=== PATIENT | female | born 1975 | race Caucasian/White ===

== ENCOUNTER 2016-12-07 01:56 | Emergency (ER) | payer SELFPAY ==
[~2016-12-07] VITALS: Ht 160 cm; Wt 63.0 kg
[~2016-12-07 01:56] MED LIST: FLAG500T PO
[2016-12-07 02:02] VITALS: BP 134/74; PULSE 78; RESP 16; TEMP 97.9; O2SAT 99
[2016-12-07] MEDS ORDERED: ONDANSETRON HCL 4 MG/2 ML VIAL IV ONE (05:00)
[2016-12-07] MEDS ORDERED: SODIUM CHLOR 0.9% 1000 ML INJ 1,000 ML IV ONE ×2 (05:00→06:30)
[2016-12-07 05:11] LABS: AUTOMATED NEUTROPHIL # 5.6 TH/MM3 (1.8-7.7); BASOPHIL # 0.1 TH/MM3 (0-0.2); BASOPHIL % 1.2 % (0.0-2.0); EOSINOPHIL # 0.2 TH/MM3 (0-0.4); EOSINOPHIL % 1.7 % (0.0-4.0); HEMATOCRIT 34.4 % (35.0-46.0); HEMO FLAGS DIFF FINAL; LYMPH % 29.8 % (9.0-44.0); LYMPHOCYTE # 2.7 TH/MM3 (1.0-4.8); MEAN CELL VOLUME 90.1 FL (80.0-100.0); MEAN CORPUSCULAR HEMOGLOBIN 30.9 PG (27.0-34.0); MEAN CORPUSCULAR HGB CONC 34.3 % (32.0-36.0); MONO % 5.9 % (0.0-8.0); NEUT % 61.4 % (16.0-70.0); PLATELET COUNT 243 TH/MM3 (150-450); RED BLOOD COUNT 3.82 MIL/MM3 (4.00-5.30); RED CELL DISTRIBUTION WIDTH 13.6 % (11.6-17.2); WHITE BLOOD COUNT 9.1 TH/MM3 (4.0-11.0)
[2016-12-07 05:13] VITALS: RESP 18
[2016-12-07] MEDS ORDERED: ZOFR4TAB3 SL (05:33)
--- NOTE | 2016-12-07 05:33 | PD ---
HPI Chief Complaint: GI Complaint Time Seen by Provider: 04:19 Travel History International Travel<30 days: No Contact w/Intl Traveler<30days: No Traveled to known affect area: No History of Present Illness HPI The patient is a 41 year old female who presents to the [facility] emergency department with a history of 3-4 days of vomiting and diarrhea. The patient reports that she's had vomiting twice a day and diarrhea twice per day. The patient arrives by ambulance services and is extremely sleepy. The patient is difficult to arouse to answer questions. She denies any alcohol or drug use. She is visiting from out of town. The patient reports having a generalized abdominal discomfort associated with the vomiting and diarrhea. The patient denies any recent fevers, cough, congestion, neck pain, chest pain, shortness of breath, urinary symptoms, or neurologic symptoms. LMP: Reportedly a few days ago. PFSH Past Medical History Narrative Medical The patient's past medical history is significant for none. Medical History: Denies Significant Hx Diminished Hearing: No ?: Not LMP: oct 2016 Menopausal: No : 0 Miscarriage: 1 Past Surgical History Narrative Surgical The patient's past surgical history is reportedly none. Surgical History: No Previous Surgery Social History Alcohol Use: No Tobacco Use: Yes (1PPD) Substance Use: No Allergies-Medications (Allergen,Severity, Reaction): Coded Allergies: Goose Feathers (Verified Allergy, Severe, 12/07/16) Molds and Smuts (Verified Allergy, Mild, 12/07/16) Reported Meds & Prescriptions Reported Meds & Active Scripts Active Zofran Odt (Ondansetron Odt) 4 Mg Tab 4 Mg SL Q6HR PRN Review of Systems Except as stated in HPI: all other systems reviewed are Neg General / Constitutional: No: Fever Eyes: No: Visual changes HENT: No: Headaches Cardiovascular: No: Chest Pain or Discomfort Respiratory: No: Shortness of Breath Gastrointestinal: Positive: Nausea, Vomiting, Diarrhea, Changes in Bowel Habits , No: Abdominal Pain, Indigestion, Loss of Appetite Genitourinary: No: Dysuria, Flank Pain Musculoskeletal: No: Pain Skin: No Rash Neurologic: No: Weakness Psychiatric: No: Depression Endocrine: No: Polydipsia Hematologic/Lymphatic: No: Easy Bruising Physical Exam Narrative General: The patient is a well-developed well-nourished female sleeping soundly on my arrival to the room, however difficult to arouse with voice. The patient once awakened quickly falls back to sleep. She reports that she is just sleepy because it is in the middle of the night and she is dehydrated. Head and Neck exam: Head is normocephalic atraumatic. Eyes: EOMI, pupils are equal round and reactive to light. Nose: Midline septum with pink mucous membranes Mouth: Dentition unremarkable. Moist mucus membranes. Posterior oropharynx is not erythematous. No tonsillar hypertrophy. Uvula midline. Airway patent. Neck: No palpable lymphadenopathy. No nuchal rigidity. No thyromegaly. Cardiovascular: Regular rate and rhythm without murmurs, gallops, or rubs. Lungs: Clear to auscultation bilaterally. No wheezes, rhonchi, or rales. Abdomen: Soft, with reported generalized discomfort on deep palpation. No point tenderness otherwise on palpation. No point tenderness specifically over McBurney's point. No guarding, rebound, or rigidity. Negative [place] sign. Normal bowel sounds are audible. Extremities: No clubbing, cyanosis, or edema. 2+ pulses in all 4 extremities. No calf tenderness on palpation. Back: No spinous process tenderness to palpation. No costovertebral angle tenderness to palpation. Neurologic Exam: She has difficulty staying awake to perform a formal neurologic exam, however the patient has no facial asymmetry and is moving all extremities equally with 5 over 5 strength and intact sensation over all dermatomes. Skin Exam: No rash noted. Intact skin that is warm and dry. Data Data Last Documented VS Vital Signs Date Time Temp Pulse Resp B/P Pulse Ox O2 Delivery O2 Flow Rate FiO2 12/07/16 06:20 75 16 114/75 95 Room Air 12/07/16 02:02 97.9 Orders Complete Blood Count With Diff (12/07/16 04:51) Comprehensive Metabolic Panel (12/07/16 04:51) C-Reactive Protein (Crp) (12/07/16 04:51) Lipase (12/07/16 04:51) Urinalysis - C+S If Indicated (12/07/16 04:51) [place] Sedimentation Rate (12/07/16 04:51) Iv Access Insert/Monitor (12/07/16 04:51) Ecg Monitoring (12/07/16 04:51) Oximetry (12/07/16 04:51) Ed Urine Pregnancytest Poc (12/07/16 04:51) Sodium Chlor 0.9% 1000 Ml Inj (Ns 1000 M (12/07/16 05:00) Ondansetron Inj (Zofran Inj) (12/07/16 05:00) Ct Abd/Pel W Iv Contrast(Rout) (12/07/16 05:02) Drug Screen, Random Urine (12/07/16 05:02) Alcohol (Ethanol) (12/07/16 05:02) Iohexol 350 Inj (Omnipaque 350 Inj) (12/07/16 05:59) Sodium Chlor 0.9% 1000 Ml Inj (Ns 1000 M (12/07/16 06:30) Ketorolac Inj (Toradol Inj) (12/07/16 06:30) Labs Laboratory Tests Test 12/07/16 12/07/16 04:00 06:15 White Blood Count 9.1 TH/MM3 Red Blood Count 3.82 MIL/MM3 Hemoglobin 11.8 GM/DL Hematocrit 34.4 % Mean Corpuscular Volume 90.1 FL Mean Corpuscular Hemoglobin 30.9 PG Mean Corpuscular Hemoglobin 34.3 % Concent Red Cell Distribution Width 13.6 % Platelet Count 243 TH/MM3 Mean Platelet Volume 7.4 FL Neutrophils (%) (Auto) 61.4 % Lymphocytes (%) (Auto) 29.8 % Monocytes (%) (Auto) 5.9 % Eosinophils (%) (Auto) 1.7 % Basophils (%) (Auto) 1.2 % Neutrophils # (Auto) 5.6 TH/MM3 Lymphocytes # (Auto) 2.7 TH/MM3 Monocytes # (Auto) 0.5 TH/MM3 Eosinophils # (Auto) 0.2 TH/MM3 Basophils # (Auto) 0.1 TH/MM3 CBC Comment DIFF FINAL Differential Comment Erythrocyte Sedimentation Rate 10 mm/hr Sodium Level 142 MEQ/L Potassium Level 3.3 MEQ/L Chloride Level 108 MEQ/L Carbon Dioxide Level 25.5 MEQ/L Anion Gap 9 MEQ/L Blood Urea Nitrogen 16 MG/DL Creatinine 0.63 MG/DL Estimat Glomerular Filtration 105 ML/MIN Rate Random Glucose 85 MG/DL Calcium Level 8.0 MG/DL Total Bilirubin 0.2 MG/DL Aspartate Amino Transf 12 U/L (AST/SGOT) Alanine Aminotransferase 17 U/L (ALT/SGPT) Alkaline Phosphatase 54 U/L C-Reactive Protein LESS THAN 0.29 MG/DL Total Protein 6.3 GM/DL Albumin 3.2 GM/DL Lipase 168 U/L Ethyl Alcohol Level LESS THAN 3 MG/DL Urine Color YELLOW Urine Turbidity CLEAR Urine pH 5.5 Urine Specific [place] 1.017 Urine Protein NEG mg/dL Urine Glucose (UA) NEG mg/dL Urine Ketones NEG mg/dL Urine Occult Blood MOD Urine Nitrite NEG Urine Bilirubin NEG Urine Urobilinogen LESS THAN 2.0 MG/DL Urine Leukocyte Esterase NEG Urine RBC LESS THAN 1 /hpf Urine WBC LESS THAN 1 /hpf Urine Squamous Epithelial 1 /hpf Cells Urine Mucus FEW /lpf Microscopic Urinalysis Comment CULT NOT INDICATED MDM Medical Decision Making Medical Screen Exam Complete: Yes Emergency Medical Condition: Yes Medical Record Reviewed: Yes Interpretation(s) Laboratory Tests Test 12/07/16 12/07/16 04:00 06:15 White Blood Count 9.1 TH/MM3 Red Blood Count 3.82 MIL/MM3 Hemoglobin 11.8 GM/DL Hematocrit 34.4 % Mean Corpuscular Volume 90.1 FL Mean Corpuscular Hemoglobin 30.9 PG Mean Corpuscular Hemoglobin 34.3 % Concent Red Cell Distribution Width 13.6 % Platelet Count 243 TH/MM3 Mean Platelet Volume 7.4 FL Neutrophils (%) (Auto) 61.4 % Lymphocytes (%) (Auto) 29.8 % Monocytes (%) (Auto) 5.9 % Eosinophils (%) (Auto) 1.7 % Basophils (%) (Auto) 1.2 % Neutrophils # (Auto) 5.6 TH/MM3 Lymphocytes # (Auto) 2.7 TH/MM3 Monocytes # (Auto) 0.5 TH/MM3 Eosinophils # (Auto) 0.2 TH/MM3 Basophils # (Auto) 0.1 TH/MM3 CBC Comment DIFF FINAL Differential Comment Erythrocyte Sedimentation Rate 10 mm/hr Sodium Level 142 MEQ/L Potassium Level 3.3 MEQ/L Chloride Level 108 MEQ/L Carbon Dioxide Level 25.5 MEQ/L Anion Gap 9 MEQ/L Blood Urea Nitrogen 16 MG/DL Creatinine 0.63 MG/DL Estimat Glomerular Filtration 105 ML/MIN Rate Random Glucose 85 MG/DL Calcium Level 8.0 MG/DL Total Bilirubin 0.2 MG/DL Aspartate Amino Transf 12 U/L (AST/SGOT) Alanine Aminotransferase 17 U/L (ALT/SGPT) Alkaline Phosphatase 54 U/L C-Reactive Protein LESS THAN 0.29 MG/DL Total Protein 6.3 GM/DL Albumin 3.2 GM/DL Lipase 168 U/L Ethyl Alcohol Level LESS THAN 3 MG/DL Urine Color YELLOW Urine Turbidity CLEAR Urine pH 5.5 Urine Specific [place] 1.017 Urine Protein NEG mg/dL Urine Glucose (UA) NEG mg/dL Urine Ketones NEG mg/dL Urine Occult Blood MOD Urine Nitrite NEG Urine Bilirubin NEG Urine Urobilinogen LESS THAN 2.0 MG/DL Urine Leukocyte Esterase NEG Urine RBC LESS THAN 1 /hpf Urine WBC LESS THAN 1 /hpf Urine Squamous Epithelial 1 /hpf Cells Urine Mucus FEW /lpf Microscopic Urinalysis Comment CULT NOT INDICATED Last Impressions Abdomen/Pelvis CT 12/07/16 0502 Signed Impressions: Service Date/Time: Monday, December 07, 2016 05:49 - CONCLUSION: Colitis with sparing of the sigmoid colon and rectum. No free air or or free fluid. Christian Quintanilla MD Differential Diagnosis Viral versus bacterial gastroenteritis, versus dehydration, versus electrolyte abnormality, versus colitis, versus diverticulitis, versus urinary tract infection, versus pyelonephritis, versus gastritis versus acute pancreatitis Narrative Course During the course of the patients emergency department visit, the patients history, examination, and differential diagnosis were reviewed with the patient. The patient had IV access obtained and blood work sent for analysis. The patient was placed on a air sampling and monitoring with oximetry and blood pressure monitoring. A CT scan of the abdomen and pelvis was ordered. The patient was provided normal saline a 1 L IV fluid bolus, Zofran 4 mg IV. The patients laboratory studies were reviewed and remarkable for a white count of 9.1, hemoglobin 11.8, platelets 243 with a normal differential, sedimentation rate is 10, CMP is remarkable for potassium of 3.3 which will be supplemented orally, chloride 108, calcium 8.0, AST 12. C-reactive is less than 0.29, lipase 168, urinalysis is unremarkable. Radiology studies were reviewed and remarkable for a CT scan of the abdomen and pelvis that shows colitis with sparing of the sigmoid colon and rectum. No free air or free fluid. The patient was unable to produce a stool sample while in the emergency department. The patient will be discharged home with a prescription for Zofran for nausea, Flagyl as antibiotic coverage for colitis. The patient is resting comfortably and feels better, is alert and in no distress. The patients results and examination findings were discussed with the patient. The repeat examination is unremarkable and benign. The history, exam, diagnostic testing, and current condition do not suggest any significant pathology to warrant further testing, continued ED treatment, admission, or surgical evaluation at this point. The vital signs have been stable. The patient does not have uncontrollable pain, intractable vomiting, or other significant symptoms. The patient's condition is stable and appropriate for discharge. The patient will pursue further outpatient evaluation with a primary care physician or other designated or consulting physician as indicated in the discharge instructions. The patient expressed understanding and was agreeable with this plan. Diagnosis Primary Impression: Nausea vomiting and diarrhea Additional Impression: Colitis, acute Referrals: Primary Care Physician 3 days Patient Instructions: Acute Diarrhea (ED), Acute Nausea and Vomiting (ED), Colitis (ED), General Instructions Med/Other Pt SpecificInfo: Prescription(s) given Scripts Metronidazole (Flagyl)500 Mg Rod353 Mg PO QID 7 Days Ref 0 Prov:Mikala Melendez MD 12/07/16 Ondansetron Odt (Zofran Odt)4 Mg Tab4 Mg SL Q6HR PRN (Nausea/Vomiting) #7 TAB Ref 0 Prov:Mikala Melendez MD 12/07/16 Disposition: 01 DISCHARGE HOME Condition: Stable Mikala Melendez MD Dec 07, 2016 05:33
[2016-12-07 05:34] LABS: ANION GAP 9 MEQ/L (5-15); AST (GOT) 12 U/L (15-37); BICARBONATE 25.5 MEQ/L (21.0-32.0); BLOOD UREA NITROGEN 16 MG/DL (7-18); CHLORIDE 108 MEQ/L (98-107); GLOMERULAR FILTRATION RATE 105 ML/MIN (>89); POTASSIUM 3.3 MEQ/L (3.5-5.1); SODIUM (NA) 142 MEQ/L (136-145)
[2016-12-07 05:37] LABS: ALKALINE PHOSPHATASE 54 U/L (45-117); ALT (GPT) 17 U/L (10-53); TOTAL BILIRUBIN ADULT 0.2 MG/DL (0.2-1.0)
[2016-12-07] MEDS ORDERED: IOHEXOL 350 MG/ML 10 ML VIAL (for RAD DIAG) IV ONE (05:59)
--- NOTE | 2016-12-07 06:13 | RADRPT ---
EXAM DATE/TIME: 12/07/2016 05:49 [facility] COMPARISON: No previous studies available for comparison. INDICATIONS : Abdominal pain along with nausea and vomiting. IV CONTRAST: 70 cc Omnipaque 350 (iohexol) IV ORAL CONTRAST: No oral contrast ingested. RADIATION DOSE: 6.77 CTDIvol (mGy) MEDICAL HISTORY : None SURGICAL HISTORY : None. ENCOUNTER: Initial ACUITY: 3 days PAIN SCALE: 7/10 LOCATION: abdomen TECHNIQUE: Volumetric scanning of the abdomen and pelvis was performed. Using automated exposure control and ad justment of the mA and/or kV according to patient size, radiation dose was kept as low as reasonably achievable to obtain optimal diagnostic quality images. FINDINGS: LOWER LUNGS: The visualized lower lungs are clear. LIVER: Liver homogeneous within normal limits. Gallbladder is nondistended. SPLEEN: Normal size without lesion. PANCREAS: Within normal limits. KIDNEYS: Normal in size and shape. There is no mass, stone or hydronephrosis. ADRENAL GLANDS: Within normal limits. VASCULAR: There is no aortic aneurysm. BOWEL/MESENTERY: Moderate severity cervical wall thickening and mucosal enhancement of the SMA and colon and transvers e colon. Finding is also present but less prominent in the descending colon. Appendix not identified. No free air or free fluid. ABDOMINAL WALL: Within normal limits. RETROPERITONEUM: There is no lymphadenopathy. BLADDER: No wall thickening or mass. REPRODUCTIVE: Within normal limits. INGUINAL: There is no lymphadenopathy or hernia. MUSCULOSKELETAL: Within normal limits for patient age. CONCLUSION: Colitis with sparing of the sigmoid colon and rectum. No free air or or free fluid. Christian Quintanilla MD on December 07, 2016 at 6:05 Board Certified Radiologist. This report was verified electronically.
[2016-12-07 06:20] VITALS: BP 114/75; PULSE 75; RESP 16; O2SAT 95
[2016-12-07] MEDS ORDERED: KETOROLAC TROMETHAMINE 30 MG/ML (IVP) VIAL IV PUSH ONE (06:30)
[2016-12-07 06:46] LABS: BLOOD, URINE MOD (NEG); COMMENT (UR) CULT NOT INDICATED; CULTURE IF INDICATED CULT NOT INDICATED; GLUCOSE,URINE NEG (NEG); KETONE, URINE NEG (NEG); MUCUS URINE FEW /lpf (OCC); NITRITE,URINE NEG (NEG); PH, URINE 5.5 (5.0-8.5); SQUAMOUS EPITHELIAL CELL URINE 1 /hpf (0-5); URINE COLOR YELLOW (YELLW/STRAW)
[2016-12-07 07:03] LABS: AMPHETAMINE, URINE NEG (NEG); BARBITURATES, URINE NEG (NEG); COCAINE, URINE NEG (NEG)
[2016-12-07] MEDS ORDERED: METR-1 PO (07:03)
[2016-12-07 07:40] VITALS: BP 90/50
== END 2016-12-07 07:40 | disposition home or self-care (01) ==
LOC: NEPC 01:56
DX: K52.9 Noninfective gastroenteritis and colitis, unspecified (principal); R11.2 Nausea with vomiting, unspecified; R10.84 Generalized abdominal pain; F17.200 Nicotine dependence, unspecified, uncomplicated
CPT/HCPCS: 74177; 80053; 80307; 81001; 83690; 84703; 85025; 85652; 86140; 96361; 96374; 96375; 99284; J1885; J2405; J7030; Q9967

== ENCOUNTER 2016-12-17 15:00 | Emergency (ER) | payer OTHER ==
[~2016-12-17] VITALS: Ht 167.6 cm; Wt 60.0 kg
[~2016-12-17 15:00] MED LIST changes: -FLAG500T PO; +METR-1 PO; +ZOFR4TAB3 SL
[2016-12-17 15:08] VITALS: BP 149/77; PULSE 60; RESP 16; TEMP 98; O2SAT 100
[2016-12-17 15:53] LABS: AUTOMATED NEUTROPHIL # 4.1 TH/MM3 (1.8-7.7); BASOPHIL % 0.6 % (0.0-2.0); EOSINOPHIL # 0.1 TH/MM3 (0-0.4); HEMATOCRIT 39.8 % (35.0-46.0); HEMO FLAGS DIFF FINAL; LYMPH % 31.3 % (9.0-44.0); LYMPHOCYTE # 2.1 TH/MM3 (1.0-4.8); MEAN CELL VOLUME 90.2 FL (80.0-100.0); MEAN CORPUSCULAR HEMOGLOBIN 30.7 PG (27.0-34.0); MEAN CORPUSCULAR HGB CONC 34.1 % (32.0-36.0); MONO % 7.3 % (0.0-8.0); NEUT % 59.8 % (16.0-70.0); PLATELET COUNT 253 TH/MM3 (150-450); RED BLOOD COUNT 4.41 MIL/MM3 (4.00-5.30); RED CELL DISTRIBUTION WIDTH 13.9 % (11.6-17.2); WHITE BLOOD COUNT 6.9 TH/MM3 (4.0-11.0)
[2016-12-17 15:59] LABS: BACTERIA, URINE OCC /hpf; BLOOD, URINE NEG (NEG); GLUCOSE,URINE NEG (NEG); KETONE, URINE NEG (NEG); MUCUS URINE MANY /lpf (OCC); NITRITE,URINE NEG (NEG); SQUAMOUS EPITHELIAL CELL URINE 45 /hpf (0-5); URINE COLOR YELLOW (YELLW/STRAW)
[2016-12-17 16:00] LABS: COMMENT (UR) CULTURE INDICATED; CULTURE IF INDICATED CULTURE INDICATED
[2016-12-17 16:02] LABS: AMPHETAMINE, URINE NEG (NEG); BARBITURATES, URINE NEG (NEG); COCAINE, URINE NEG (NEG)
[2016-12-17 16:19] LABS: ANION GAP 9 MEQ/L (5-15); AST (GOT) 14 U/L (15-37); BICARBONATE 23.2 MEQ/L (21.0-32.0); BLOOD UREA NITROGEN 9 MG/DL (7-18); CHLORIDE 107 MEQ/L (98-107); GLOMERULAR FILTRATION RATE 125 ML/MIN (>89); POTASSIUM 3.6 MEQ/L (3.5-5.1); SODIUM (NA) 139 MEQ/L (136-145)
[2016-12-17 16:30] LABS: ACETAMINOPHEN LESS THAN 2.0 MCG/ML (10.0-30.0); ALKALINE PHOSPHATASE 64 U/L (45-117); ALT (GPT) 19 U/L (10-53); TOTAL BILIRUBIN ADULT 0.4 MG/DL (0.2-1.0)
[2016-12-17] MEDS ORDERED: NITR100C4 PO (17:14)
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
[2016-12-17] MEDS ORDERED: NITROFURANTOIN MONOHYD MACROCR 100 MG CAP PO ONE (17:15)
[2016-12-17] MEDS ORDERED: NICOTINE 21 MG/24 HR PATCH TD ONE (19:15)
[2016-12-17] MEDS ORDERED: OLANZapine 10 MG TAB PO ONE (20:15)
[2016-12-17] MEDS ORDERED: diphenhydrAMINE HCL 50 MG CAP PO PRN (20:15)
[2016-12-17 22:19] VITALS: BP 126/57; PULSE 75; RESP 19; O2SAT 100
== END 2016-12-18 01:45 ==
LOC: NEPA 15:00 → NEPJ 12-18 01:45
DX: F17.210 Nicotine dependence, cigarettes, uncomplicated (principal); N39.0 Urinary tract infection, site not specified; B96.89 Other specified bacterial agents as the cause of diseases classified elsewhere
CPT/HCPCS: 80053; 80307; 81001; 84443; 85025; 87086; 99283; Q0163

== ENCOUNTER 2017-02-03 23:00 | Emergency (ER) | payer SELFPAY ==
[~2017-02-03] VITALS: Ht 160 cm; Wt 68.3 kg
[~2017-02-03 23:00] MED LIST changes: -METR-1 PO; +NITR100C4 PO; -ZOFR4TAB3 SL
[2017-02-03 23:19] VITALS: BP 159/101; PULSE 100; RESP 12; TEMP 97.8; O2SAT 100
[2017-02-04 00:12] VITALS: BP 159/101; PULSE 100; RESP 18; TEMP 97.8; O2SAT 100
[2017-02-04] MEDS: SODIUM CHLOR 0.9% 1000 ML INJ 1,000 ML IV ONE ×2 (01:07→02:07)
[2017-02-04] MEDS ORDERED: SODIUM CHLORIDE 0.9% FLUSH 10 ML FLUSH IVF PRN (01:15)
[2017-02-04 01:16] VITALS: RESP 18; O2SAT 100
[2017-02-04 01:31] VITALS: BP 138/79; PULSE 78; RESP 18; O2SAT 96
[2017-02-04 01:37] LABS: BLOOD, URINE TRACE (NEG); GLUCOSE,URINE NEG (NEG); KETONE, URINE NEG (NEG); NITRITE,URINE NEG (NEG); PH, URINE 5.5 (5.0-8.5)
[2017-02-04 01:43] LABS: URINE COLOR STRAW (YELLW/STRAW)
[2017-02-04 01:44] LABS: COMMENT (UR) CULT NOT INDICATED; CULTURE IF INDICATED CULT NOT INDICATED; RBC, URINE 0-3 /hpf (0-3); SQUAMOUS EPITHELIAL CELL URINE 0-5 /hpf (0-5); WBC, URINE 0-2 /hpf (0-5)
[2017-02-04 02:11] LABS: AUTOMATED NEUTROPHIL # 8.6 TH/MM3 (1.8-7.7); BASOPHIL # 0.1 TH/MM3 (0-0.2); BASOPHIL % 0.7 % (0.0-2.0); EOSINOPHIL # 0.1 TH/MM3 (0-0.4); EOSINOPHIL % 0.6 % (0.0-4.0); HEMATOCRIT 37.1 % (35.0-46.0); HEMO FLAGS DIFF FINAL; LYMPH % 17.8 % (9.0-44.0); MEAN CELL VOLUME 89.3 FL (80.0-100.0); MEAN CORPUSCULAR HEMOGLOBIN 30.8 PG (27.0-34.0); MEAN CORPUSCULAR HGB CONC 34.5 % (32.0-36.0); NEUT % 74.9 % (16.0-70.0); PLATELET COUNT 261 TH/MM3 (150-450); RED BLOOD COUNT 4.15 MIL/MM3 (4.00-5.30); RED CELL DISTRIBUTION WIDTH 12.5 % (11.6-17.2); WHITE BLOOD COUNT 11.4 TH/MM3 (4.0-11.0)
[2017-02-04 02:15] VITALS: BP 164/80; PULSE 77; RESP 18; O2SAT 99
[2017-02-04 02:34] LABS: ALKALINE PHOSPHATASE 73 U/L (45-117); ALT (GPT) 29 U/L (10-53); ANION GAP 10 MEQ/L (5-15); AST (GOT) 28 U/L (15-37); BICARBONATE 24.1 MEQ/L (21.0-32.0); BLOOD UREA NITROGEN 1 MG/DL (7-18); CHLORIDE 99 MEQ/L (98-107); GLOMERULAR FILTRATION RATE 140 ML/MIN (>89); MAGNESIUM 1.7 MG/DL (1.5-2.5); SODIUM (NA) 133 MEQ/L (136-145); TOTAL BILIRUBIN ADULT 0.4 MG/DL (0.2-1.0)
[2017-02-04 02:36] LABS: POTASSIUM 2.8 MEQ/L (3.5-5.1)
[2017-02-04] MEDS ORDERED: POTASSIUM CHLOR 10 MEQ PREMIX 100 ML IV ONE (03:00)
[2017-02-04] MEDS ORDERED: POTASSIUM CHLORIDE 20 MEQ CONTROLLED RELEASE TAB PO ONE (03:00)
[2017-02-04 03:15] VITALS: BP 114/68; PULSE 75; RESP 18; O2SAT 99
--- NOTE | 2017-02-04 03:48 | PD ---
HPI Chief Complaint: Musculoskeletal Complaint Time Seen by Provider: 01:06 Travel History International Travel<30 days: No Contact w/Intl Traveler<30days: No Traveled to known affect area: No History of Present Illness HPI 41 Year-old female presents to the emergency department stating that she doesn' t feel well that she thinks that she has anorexia and thinks that she does not have an of body fat because she hasn't eaten for 4 years. Patient is concerned about the redness of her and arms that she identifies her in an exposed distribution consistent with sunburn. Patient states that she is homeless and is tired and needs a place to sleep. Patient denies other concerns or complaints. PFSH Past Medical History Narrative Medical Anxiety; tobacco use; nursing notes reviewed Diabetes: No Diminished Hearing: No Immunizations Current: Yes Seizures: No Tetanus Vaccination: Unknown Influenza Vaccination: No ?: Not LMP: 3 WEEKS Menopausal: No : 0 Miscarriage: 1 Social History Alcohol Use: No Tobacco Use: Yes (1PPD) Substance Use: No (PT DENIES) Allergies-Medications (Allergen,Severity, Reaction): Coded Allergies: Goose Feathers (Verified Allergy, Severe, 02/04/17) Molds and Smuts (Verified Allergy, Mild, 02/04/17) Reported Meds & Prescriptions Reported Meds & Active Scripts Active Review of Systems Except as stated in HPI: all other systems reviewed are Neg General / Constitutional: No: Fever, Chills Eyes: No: Visual changes HENT: No: Headaches, Lightheadedness, Neck Pain Cardiovascular: No: Chest Pain or Discomfort, Palpitations, Diaphoresis Respiratory: No: Wheezing Gastrointestinal: No: Nausea, Vomiting, Abdominal Pain Genitourinary: No: Flank Pain Musculoskeletal: No: Myalgias, Arthralgias Skin: No Rash Neurologic: No: Weakness, Dizziness, Syncope Psychiatric: Positive: Anxiety, No: Suicidal Ideations Hematologic/Lymphatic: No: Easy Bruising Physical Exam Narrative GENERAL: Well-developed well-nourished female in no acute distress no respiratory distress SKIN: Warm and dry. Facial anterior chest bilateral upper extremities with mild erythema consistent with sun exposure areas for sunburn. No vesicles no pustules no petechia no purpura HEAD: Atraumatic. Normocephalic. EYES: Pupils equal and round. No scleral icterus. No injection or drainage. ENT: No nasal bleeding or discharge. Mucous membranes pink and moist. NECK: Trachea midline. No JVD. CARDIOVASCULAR: Regular rate and rhythm. RESPIRATORY: No accessory muscle use. Clear to auscultation. Breath sounds equal bilaterally. GASTROINTESTINAL: Abdomen soft, non-tender, nondistended. Hepatic and splenic margins not palpable. MUSCULOSKELETAL: Extremities without clubbing, cyanosis, or edema. No obvious deformities. NEUROLOGICAL: Awake and alert. No obvious cranial nerve deficits. Motor grossly within normal limits. Five out of 5 muscle strength in the arms and legs. Normal speech. PSYCHIATRIC: Appropriate mood and affect; insight and judgment normal. Data Data Last Documented VS Vital Signs Date Time Temp Pulse Resp B/P Pulse Ox O2 Delivery O2 Flow Rate FiO2 02/04/17 04:39 86 18 117/69 99 02/04/17 03:15 Room Air 02/04/17 00:12 97.8 Orders Complete Blood Count With Diff (02/04/17 01:07) Comprehensive Metabolic Panel (02/04/17 01:07) Magnesium (Mg) (02/04/17 01:07) Urinalysis - C+S If Indicated (02/04/17 01:07) Ecg Monitoring (02/04/17 01:07) Iv Access Insert/Monitor (02/04/17 01:07) Oximetry (02/04/17 01:07) Sodium Chloride 0.9% Flush (Ns Flush) (02/04/17 01:15) Sodium Chlor 0.9% 1000 Ml Inj (Ns 1000 M (02/04/17 01:07) Ed Urine Pregnancytest Poc (02/04/17 01:07) Potassium Chloride (Kcl) (02/04/17 03:00) Potassium Chlor 10 Meq Premix (Kcl 10 Me (02/04/17 03:00) Labs Laboratory Tests Test 02/04/17 02/04/17 01:25 01:55 Urine Color STRAW Urine Turbidity CLEAR Urine pH 5.5 Urine Specific [place] 1.003 Urine Protein NEG mg/dL Urine Glucose (UA) NEG mg/dL Urine Ketones NEG mg/dL Urine Occult Blood TRACE Urine Nitrite NEG Urine Bilirubin NEG Urine Leukocyte Esterase NEG Urine RBC 0-3 /hpf Urine WBC 0-2 /hpf Urine Squamous Epithelial 0-5 /hpf Cells Urine Bacteria NONE /hpf Microscopic Urinalysis Comment CULT NOT INDICATED White Blood Count 11.4 TH/MM3 Red Blood Count 4.15 MIL/MM3 Hemoglobin 12.8 GM/DL Hematocrit 37.1 % Mean Corpuscular Volume 89.3 FL Mean Corpuscular Hemoglobin 30.8 PG Mean Corpuscular Hemoglobin 34.5 % Concent Red Cell Distribution Width 12.5 % Platelet Count 261 TH/MM3 Mean Platelet Volume 7.5 FL Neutrophils (%) (Auto) 74.9 % Lymphocytes (%) (Auto) 17.8 % Monocytes (%) (Auto) 6.0 % Eosinophils (%) (Auto) 0.6 % Basophils (%) (Auto) 0.7 % Neutrophils # (Auto) 8.6 TH/MM3 Lymphocytes # (Auto) 2.0 TH/MM3 Monocytes # (Auto) 0.7 TH/MM3 Eosinophils # (Auto) 0.1 TH/MM3 Basophils # (Auto) 0.1 TH/MM3 CBC Comment DIFF FINAL Differential Comment Sodium Level 133 MEQ/L Potassium Level 2.8 MEQ/L Chloride Level 99 MEQ/L Carbon Dioxide Level 24.1 MEQ/L Anion Gap 10 MEQ/L Blood Urea Nitrogen 1 MG/DL Creatinine 0.49 MG/DL Estimat Glomerular Filtration 140 ML/MIN Rate Random Glucose 88 MG/DL Calcium Level 8.8 MG/DL Magnesium Level 1.7 MG/DL Total Bilirubin 0.4 MG/DL Aspartate Amino Transf 28 U/L (AST/SGOT) Alanine Aminotransferase 29 U/L (ALT/SGPT) Alkaline Phosphatase 73 U/L Total Protein 7.4 GM/DL Albumin 3.8 GM/DL MDM Medical Decision Making Medical Screen Exam Complete: Yes Emergency Medical Condition: Yes Medical Record Reviewed: Yes Interpretation(s) CBC & BMP Diagram 02/04/17 01:55 Vital Signs Date Time Temp Pulse Resp B/P Pulse Ox O2 Delivery O2 Flow Rate FiO2 02/04/17 04:39 86 18 117/69 99 02/04/17 03:15 75 18 114/68 99 Room Air 02/04/17 02:15 85 18 02/04/17 02:15 77 18 164/80 99 Room Air 02/04/17 01:31 78 18 138/79 96 Room Air 02/04/17 01:16 18 100 Room Air 02/04/17 00:15 100 18 02/04/17 00:12 97.8 100 18 159/101 100 02/03/17 23:19 97.8 100 12 159/101 100 Differential Diagnosis Generalized weakness, electronic disturbance, sunburn Narrative Course Specimens collected and sent for resulting patient identified to have hypokalemia patient received oral and IV potassium replacement; patient subsequently concerned about her estrogen level was encouraged to follow-up with primary care provider and given resources for outpatient follow-up such as [facility] and [facility] clinic. Patient is satisfied that her questions have been answered to her understanding and satisfaction and is desirous of being discharged. Diagnosis Primary Impression: Hypokalemia Referrals: [facility] as needed [facility] call for appointment Patient Instructions: General Instructions Additional Instructions: Increase fluid hydration Add potassium containing foods and beverages to dietary intake Follow-up with primary care provider/clinic/[facility]/[place] [facility] or [facility] Return to the emergency department as needed Disposition: 01 DISCHARGE HOME Condition: Stable Jovita Chiang MD February 04, 2017 03:48
[2017-02-04 04:39] VITALS: BP 117/69
[2017-02-05] MEDS ORDERED: POTA1TAB4 PO (02:41)
== END 2017-02-04 05:08 | disposition home or self-care (01) ==
LOC: PHED 23:00
DX: E87.6 Hypokalemia (principal); L53.9 Erythematous condition, unspecified; F17.200 Nicotine dependence, unspecified, uncomplicated; Z59.0 Homelessness; Z86.59 Personal history of other mental and behavioral disorders
CPT/HCPCS: 80053; 81001; 83735; 84703; 85025; 96361; 96365; 99284; J3480; J7030

== ENCOUNTER 2017-02-04 19:32 | Emergency (ER) | payer SELFPAY ==
[2017-02-05] MEDS ORDERED: POTA1TAB4 PO (02:41)
== END 2017-02-04 21:00 | disposition left against medical advice (07) ==
LOC: PHED 19:32
DX: R53.1 Weakness (principal); Z53.29 Procedure and treatment not carried out because of patient's decision for other reasons
CPT/HCPCS: 99281

== ENCOUNTER 2017-02-05 00:36 | Emergency (ER) | payer SELFPAY ==
[~2017-02-05] VITALS: Ht 160 cm; Wt 67.8 kg
[2017-02-05 00:53] VITALS: BP 131/84; PULSE 88; RESP 18; TEMP 98.3; O2SAT 97
[2017-02-05 01:05] VITALS: BP 131/84; PULSE 88; RESP 18; TEMP 98.3; O2SAT 97
--- NOTE | 2017-02-05 01:13 | PD ---
HPI Chief Complaint: General Weakness Time Seen by Provider: 00:55 Travel History International Travel<30 days: No Contact w/Intl Traveler<30days: No Traveled to known affect area: No History of Present Illness HPI The patient is a 41-year-old homeless female that was here last night and apparently slept the night here. She comes in tonight again stating she is "tired". She then states she hasn't had protein and 4 years and walks a lot. She would not answer me when I asked her why she did not visit the homeless half-way. She has multiple visits for panic attacks and anxiety. PFSH Past Medical History Diabetes: No Diminished Hearing: No Immunizations Current: Yes Seizures: No ?: Not LMP: 01/18/17 Menopausal: No : 0 Miscarriage: 1 Social History Alcohol Use: No Tobacco Use: Yes (1PPD) Substance Use: No (PT DENIES) Allergies-Medications (Allergen,Severity, Reaction): Coded Allergies: Goose Feathers (Verified Allergy, Severe, 02/05/17) Molds and Smuts (Verified Allergy, Mild, 02/05/17) Reported Meds & Prescriptions Reported Meds & Active Scripts Active K-Tab (Potassium Chloride) 20 Meq Tab 20 Meq PO DAILY Review of Systems Except as stated in HPI: all other systems reviewed are Neg Physical Exam Narrative GENERAL: The patient is alert, oriented 3, mildly dehydrated appearing in no apparent distress other than anxiety. Her vital signs are normal. There is no evidence of recent weight loss. SKIN: Focused skin assessment warm/dry. HEAD: Atraumatic. Normocephalic. EYES: Pupils equal and round. No scleral icterus. No injection or drainage. ENT: No nasal bleeding or discharge. Mucous membranes pink and moist. NECK: Trachea midline. No JVD. CARDIOVASCULAR: Regular rate and rhythm. No murmur appreciated. RESPIRATORY: No accessory muscle use. Clear to auscultation. Breath sounds equal bilaterally. GASTROINTESTINAL: Abdomen soft, non-tender, nondistended. Hepatic and splenic margins not palpable. No guarding or rebound. MUSCULOSKELETAL: No obvious deformities. No clubbing. No cyanosis. No edema. NEUROLOGICAL: Awake and alert. No obvious cranial nerve deficits. Motor grossly within normal limits. Normal speech and gait. PSYCHIATRIC: The patient appears anxious; insight and judgment normal. Data Data Last Documented VS Vital Signs Date Time Temp Pulse Resp B/P Pulse Ox O2 Delivery O2 Flow Rate FiO2 02/05/17 01:07 88 18 97 Room Air 02/05/17 01:05 98.3 131/84 Orders Sodium Chlor 0.9% 1000 Ml Inj (Ns 1000 M (02/05/17 01:15) Complete Blood Count With Diff (02/05/17 01:14) Comprehensive Metabolic Panel (02/05/17 01:14) Lipase (02/05/17 01:14) Urinalysis - C+S If Indicated (02/05/17 01:14) Beta Hcg (Quant/Titer) (02/05/17 01:14) Potassium Chloride (Kcl) (02/05/17 01:45) Potassium Chloride (Kcl) (02/05/17 03:00) Labs Laboratory Tests Test 02/05/17 01:30 White Blood Count 10.0 TH/MM3 Red Blood Count 4.32 MIL/MM3 Hemoglobin 12.9 GM/DL Hematocrit 39.0 % Mean Corpuscular Volume 90.3 FL Mean Corpuscular Hemoglobin 29.7 PG Mean Corpuscular Hemoglobin 32.9 % Concent Red Cell Distribution Width 12.8 % Platelet Count 277 TH/MM3 Mean Platelet Volume 7.4 FL Neutrophils (%) (Auto) 65.1 % Lymphocytes (%) (Auto) 26.1 % Monocytes (%) (Auto) 7.3 % Eosinophils (%) (Auto) 1.2 % Basophils (%) (Auto) 0.3 % Neutrophils # (Auto) 6.6 TH/MM3 Lymphocytes # (Auto) 2.6 TH/MM3 Monocytes # (Auto) 0.7 TH/MM3 Eosinophils # (Auto) 0.1 TH/MM3 Basophils # (Auto) 0.0 TH/MM3 CBC Comment DIFF FINAL Differential Comment Urine Color YELLOW Urine Turbidity CLEAR Urine pH 6.5 Urine Specific [place] 1.004 Urine Protein NEG mg/dL Urine Glucose (UA) NEG mg/dL Urine Ketones NEG mg/dL Urine Occult Blood TRACE Urine Nitrite NEG Urine Bilirubin NEG Urine Leukocyte Esterase NEG Urine RBC 0-3 /hpf Urine WBC 0-2 /hpf Urine Squamous Epithelial 0-5 /hpf Cells Microscopic Urinalysis Comment CULT NOT INDICATED Sodium Level 132 MEQ/L Potassium Level 3.2 MEQ/L Chloride Level 97 MEQ/L Carbon Dioxide Level 26.4 MEQ/L Anion Gap 9 MEQ/L Blood Urea Nitrogen 2 MG/DL Creatinine 0.49 MG/DL Estimat Glomerular Filtration 140 ML/MIN Rate Random Glucose 84 MG/DL Calcium Level 9.2 MG/DL Total Bilirubin 0.3 MG/DL Aspartate Amino Transf 28 U/L (AST/SGOT) Alanine Aminotransferase 31 U/L (ALT/SGPT) Alkaline Phosphatase 72 U/L Total Protein 7.3 GM/DL Albumin 3.7 GM/DL Lipase 121 U/L Human Chorionic Gonadotropin, LESS THAN 1 Quant MIU/ML MDM Medical Decision Making Medical Screen Exam Complete: Yes Emergency Medical Condition: Yes Medical Record Reviewed: Yes Interpretation(s) The complete metabolic profile shows a sodium of 132, potassium 3.2 but is otherwise unremarkable. The lipase is normal and the beta-hCG is less than 1. The CBC is normal. The patient is not anemic, her hemoglobin is 12.9. The urine shows trace occult blood but is otherwise normal and culture is not indicated. Differential Diagnosis Anxiety, electrolyte disorder, dehydration, anemia, malingering to obtain food and bed Narrative Course The patient has a mild hypokalemia of 3.2. Yesterday her potassium was 2.8. We gave her 20 mEq of potassium when she came in anticipating that would be low. We will give her another 20 mEq now, she is highly unlikely to purchase potassium pills. The patient should follow-up with the homeless half-way. Impression: Malingering to obtain food in bed and mild hypokalemia Diagnosis Primary Impression: Malingering Additional Impression: Hypokalemia due to inadequate potassium intake Additional Instructions: Follow-up with the homeless half-way. Try to eat as much fruit as you can to build up your potassium. Your potassium is slightly low tonight and fruits/ fruit juices help to build your potassium. Med/Other Pt SpecificInfo: Prescription(s) given Scripts Potassium Chloride ER (K-Tab)20 Meq Tab20 Meq PO DAILY #10 TAB Ref 0 Prov:Sean Marie MD 02/05/17 Disposition: DISCHARGE HOME Condition: Stable Sean Marie MD February 05, 2017 01:13 Sean Marie MD February 05, 2017 01:13
[2017-02-05] MEDS: SODIUM CHLOR 0.9% 1000 ML INJ 1,000 ML IV SCH ×2 (01:42→01:46)
[2017-02-05] MEDS ORDERED: POTASSIUM CHLORIDE 20 MEQ CONTROLLED RELEASE TAB PO ONE ×2 (01:45→03:00)
[2017-02-05 01:47] LABS: AUTOMATED NEUTROPHIL # 6.6 TH/MM3 (1.8-7.7); BASOPHIL % 0.3 % (0.0-2.0); EOSINOPHIL # 0.1 TH/MM3 (0-0.4); EOSINOPHIL % 1.2 % (0.0-4.0); HEMO FLAGS DIFF FINAL; LYMPH % 26.1 % (9.0-44.0); LYMPHOCYTE # 2.6 TH/MM3 (1.0-4.8); MEAN CELL VOLUME 90.3 FL (80.0-100.0); MEAN CORPUSCULAR HEMOGLOBIN 29.7 PG (27.0-34.0); MEAN CORPUSCULAR HGB CONC 32.9 % (32.0-36.0); MONO % 7.3 % (0.0-8.0); NEUT % 65.1 % (16.0-70.0); PLATELET COUNT 277 TH/MM3 (150-450); RED BLOOD COUNT 4.32 MIL/MM3 (4.00-5.30); RED CELL DISTRIBUTION WIDTH 12.8 % (11.6-17.2)
[2017-02-05 01:50] LABS: BLOOD, URINE TRACE (NEG); GLUCOSE,URINE NEG (NEG); KETONE, URINE NEG (NEG); NITRITE,URINE NEG (NEG); PH, URINE 6.5 (5.0-8.5)
[2017-02-05 01:52] LABS: URINE COLOR YELLOW (YELLW/STRAW)
[2017-02-05 01:54] LABS: RBC, URINE 0-3 /hpf (0-3); SQUAMOUS EPITHELIAL CELL URINE 0-5 /hpf (0-5); WBC, URINE 0-2 /hpf (0-5)
[2017-02-05 01:55] LABS: COMMENT (UR) CULT NOT INDICATED; CULTURE IF INDICATED CULT NOT INDICATED
[2017-02-05 01:57] LABS: CHLORIDE 97 MEQ/L (98-107); POTASSIUM 3.2 MEQ/L (3.5-5.1); SODIUM (NA) 132 MEQ/L (136-145)
[2017-02-05 02:01] LABS: ANION GAP 9 MEQ/L (5-15); BICARBONATE 26.4 MEQ/L (21.0-32.0); BLOOD UREA NITROGEN 2 MG/DL (7-18)
[2017-02-05 02:03] LABS: ALT (GPT) 31 U/L (10-53)
[2017-02-05 02:04] LABS: AST (GOT) 28 U/L (15-37); GLOMERULAR FILTRATION RATE 140 ML/MIN (>89)
[2017-02-05 02:05] LABS: TOTAL BILIRUBIN ADULT 0.3 MG/DL (0.2-1.0)
[2017-02-05 02:06] LABS: ALKALINE PHOSPHATASE 72 U/L (45-117)
[2017-02-05 02:09] LABS: BETA HCG QUANT LESS THAN 1 MIU/ML (0-5)
[2017-02-05] MEDS ORDERED: POTA1TAB4 PO (02:41)
== END 2017-02-05 03:09 | disposition home or self-care (01) ==
LOC: PHED 00:36
DX: E87.6 Hypokalemia (principal); R53.83 Other fatigue; F17.200 Nicotine dependence, unspecified, uncomplicated; Z76.5 Malingerer [conscious simulation]; Z59.0 Homelessness; Z86.59 Personal history of other mental and behavioral disorders
CPT/HCPCS: 80053; 81001; 83690; 84702; 85025; 96360; 99283; J7030

== ENCOUNTER 2017-02-10 07:10 | Emergency (ER) | payer SELFPAY ==
[~2017-02-10] VITALS: Ht 160 cm; Wt 60.0 kg
[~2017-02-10 07:10] MED LIST changes: -NITR100C4 PO; +POTA1TAB4 PO
[2017-02-10 07:12] VITALS: BP 132/79; PULSE 80; RESP 16; TEMP 97.8; O2SAT 90
[2017-02-10 07:33] VITALS: PULSE 78; RESP 16; O2SAT 98
--- NOTE | 2017-02-10 07:43 | PD ---
HPI Chief Complaint: General Weakness Time Seen by Provider: 07:29 Travel History International Travel<30 days: No Contact w/Intl Traveler<30days: No Traveled to known affect area: No History of Present Illness HPI The patient was seen and examined in the presence of the nurse. This is a local homeless person who comes to the ER stating that she is exhausted and homeless. She would like something to eat. She does not have any specific medical complaint. Severity is mild. She is frustrated with her homeless situation. PFSH Past Medical History Diabetes: No Diminished Hearing: No Immunizations Current: Yes Seizures: No ?: Not LMP: DECEMBER 2016 Menopausal: No : 0 Miscarriage: 1 Social History Alcohol Use: No Tobacco Use: Yes (1PPD) Substance Use: No (PT DENIES) Allergies-Medications (Allergen,Severity, Reaction): Coded Allergies: Goose Feathers (Verified Allergy, Severe, 02/05/17) Molds and Smuts (Verified Allergy, Mild, 02/05/17) Reported Meds & Prescriptions Reported Meds & Active Scripts Active K-Tab (Potassium Chloride) 20 Meq Tab 20 Meq PO DAILY Review of Systems General / Constitutional: No: Fever HENT: No: Headaches Cardiovascular: No: Chest Pain or Discomfort Physical Exam Narrative GASTROINTESTINAL: Abdomen soft, non-tender, nondistended. Positive bowel sounds. No hepato-splenomegaly, or palpable masses. No guarding. SKIN: Focused skin assessment reveals no rash or ulcers. Skin is warm and dry. Palpation shows no induration or nodules. RESPIRATORY: Respiratory effort unlabored, no retractions or use of accessory muscles. Breath sounds are clear and symmetric. Data Data Last Documented VS Vital Signs Date Time Temp Pulse Resp B/P Pulse Ox O2 Delivery O2 Flow Rate FiO2 02/10/17 07:33 78 16 98 02/10/17 07:12 97.8 132/79 [facility] Medical Decision Making Medical Screen Exam Complete: Yes Emergency Medical Condition: Yes Medical Record Reviewed: Yes Differential Diagnosis Homeless, fatigue, malingering Narrative Course I have reviewed the patient's electronic medical record. Reviewed her recent visit. She had labs done which I reviewed. She received information on [facility] and local [facility] Patient has normal vital signs Saturation 98% with clear lungs No specific complaint She does not look dehydrated No indication for medical studies Gave her a bottle of Gatorade Recommend she follow up with the homeless [facility] Diagnosis Primary Impression: Malingering Additional Instructions: The patient was advised to follow up with their physician and return if they worsen. Med/Other Pt SpecificInfo: Other Disposition: 01 DISCHARGE HOME Condition: Stable Stan Hyatt MD February 10, 2017 07:43
== END 2017-02-10 10:53 | disposition home or self-care (01) ==
LOC: NEPE 07:10
DX: Z76.5 Malingerer [conscious simulation] (principal); X58.XXXA Exposure to other specified factors, initial encounter; Z59.0 Homelessness; F17.210 Nicotine dependence, cigarettes, uncomplicated
CPT/HCPCS: 99283

== ENCOUNTER 2017-02-10 17:01 | Emergency (ER) | payer SELFPAY ==
[~2017-02-10] VITALS: Ht 160 cm; Wt 60.0 kg
[2017-02-10 17:08] VITALS: BP 135/81; PULSE 83; RESP 16; TEMP 98.4; O2SAT 97
== END 2017-02-10 18:35 | disposition left against medical advice (07) ==
LOC: NED 17:01
DX: R68.89 Other general symptoms and signs (principal)
CPT/HCPCS: 99281

== ENCOUNTER 2017-02-10 21:17 | Emergency (ER) | payer SELFPAY ==
[~2017-02-10] VITALS: Ht 160 cm; Wt 66.2 kg
[2017-02-10 21:35] VITALS: BP 132/80; PULSE 80; RESP 16; TEMP 98.6; O2SAT 98
[2017-02-10 22:37] LABS: BACTERIA, URINE RARE /hpf; BLOOD, URINE NEG (NEG); COMMENT (UR) CULT NOT INDICATED; CULTURE IF INDICATED CULT NOT INDICATED; GLUCOSE,URINE NEG (NEG); KETONE, URINE NEG (NEG); NITRITE,URINE NEG (NEG); PH, URINE 6.5 (5.0-8.5); SQUAMOUS EPITHELIAL CELL URINE 2 /hpf (0-5); URINE COLOR LIGHT-YELLOW (YELLW/STRAW)
--- NOTE | 2017-02-11 00:21 | PD ---
HPI Chief Complaint: Complaint Time Seen by Provider: 23:50 Travel History International Travel<30 days: No Contact w/Intl Traveler<30days: No Traveled to known affect area: No History of Present Illness HPI 41-year-old female arrives to the ER with a complaint to the triage nurse of urinary retention for 4 days. She was able to provide a urinalysis here. In the room the patient stated she had to leave the hospital. She asked for an HIV test as well. She also stated she had to urinate. Pt was seen in the ER earlier in the day endorsing complaint for exhaustion and homelessness along with hunger. Shortly after discharge then she returned to the ER and then left without being seen. She returned again shortly thereafter. PFSH Past Medical History Diabetes: No Diminished Hearing: No Immunizations Current: Yes Seizures: No ?: Not Menopausal: No : 0 Miscarriage: 1 Social History Alcohol Use: No Tobacco Use: Yes (1PPD) Substance Use: No (PT DENIES) Allergies-Medications (Allergen,Severity, Reaction): Coded Allergies: Goose Feathers (Verified Allergy, Severe, 02/10/17) Molds and Smuts (Verified Allergy, Mild, 02/10/17) Reported Meds & Prescriptions Reported Meds & Active Scripts Active Review of Systems ROS Limitations: Uncooperative Physical Exam Narrative GENERAL: 41 yo F, WNWND, found sleeping in room, had been to the bathroom once while here, speaking full sentences, AO x person, place and location. SKIN: Warm and dry. Erythema about the face. HEAD: Atraumatic. Normocephalic. EYES: Pupils equal and round. No scleral icterus. No injection or drainage. ENT: No nasal bleeding or discharge. Mucous membranes pink and moist. NECK: Trachea midline. No JVD. CARDIOVASCULAR: Regular rate and rhythm. RESPIRATORY: No accessory muscle use. Clear to auscultation. Breath sounds equal bilaterally. GASTROINTESTINAL: Abdomen soft, non-tender, nondistended. Hepatic and splenic margins not palpable. MUSCULOSKELETAL: Extremities without clubbing, cyanosis, or edema. No obvious deformities. NEUROLOGICAL: Awake and alert. No obvious cranial nerve deficits. Motor grossly within normal limits. Five out of 5 muscle strength in the arms and legs. Normal speech. PSYCHIATRIC: Appropriate mood and affect; insight and judgment normal. Data Data Last Documented VS Vital Signs Date Time Temp Pulse Resp B/P Pulse Ox O2 Delivery O2 Flow Rate FiO2 02/10/17 21:35 98.6 80 16 132/80 98 VS reviewed Orders Urinalysis - C+S If Indicated (02/10/17 22:14) Labs Laboratory Tests Test 02/10/17 22:19 Urine Color LIGHT-YELLOW Urine Turbidity HAZY Urine pH 6.5 Urine Specific [place] 1.002 Urine Protein NEG mg/dL Urine Glucose (UA) NEG mg/dL Urine Ketones NEG mg/dL Urine Occult Blood NEG Urine Nitrite NEG Urine Bilirubin NEG Urine Urobilinogen LESS THAN 2.0 MG/DL Urine Leukocyte Esterase NEG Urine Squamous Epithelial 2 /hpf Cells Urine Bacteria RARE /hpf Microscopic Urinalysis Comment CULT NOT INDICATED MDM Medical Decision Making Medical Screen Exam Complete: Yes Emergency Medical Condition: Yes Medical Record Reviewed: Yes Differential Diagnosis Malingering, UTI, hunger, psychiatric disease Narrative Course Pt asked to leave the ER. Pt AOx3 and is without complaint. She demonstrates capacity for independent and informed decision making. Physical restraints would have been required to keep patient here which would have been grossly inappropriate. Diagnosis Primary Impression: Left against medical advice Additional Impression: Malingering Additional Instructions: You have a choice when it comes to health care, and we are glad that you chose [facility]. Hopefully, we have met your expectations on today's visit. You are welcome to return to [facility] at any time, as we are committed to meeting the health care needs of our community. Med/Other Pt SpecificInfo: No Change to Meds Disposition: 07 AGAINST MEDICAL ADVICE Condition: Raphael Palmer MD February 11, 2017 00:21
[2017-02-12] MEDS ORDERED: POTA20TA5 PO (16:28)
== END 2017-02-11 00:35 | disposition home or self-care (01) ==
LOC: NEDAMB 21:17 → NEPE 02-11 00:35
DX: Z76.5 Malingerer [conscious simulation] (principal); F17.210 Nicotine dependence, cigarettes, uncomplicated; Z59.0 Homelessness; Z53.21 Procedure and treatment not carried out due to patient leaving prior to being seen by health care provider
CPT/HCPCS: 81001; 99283

== ENCOUNTER 2017-02-11 05:55 | Inpatient (IN) | payer SELFPAY ==
[~2017-02-11] VITALS: Ht 167.6 cm; Wt 66.3 kg
[~2017-02-11 05:55] MED LIST changes: +NITR100C4 PO
[2017-02-11 06:00] VITALS: BP 171/89; PULSE 86; RESP 16; TEMP 98.7; O2SAT 98
--- NOTE | 2017-02-11 06:38 | PD ---
HPI Chief Complaint: Psychiatric Symptoms Time Seen by Provider: 06:26 Travel History International Travel<30 days: No Contact w/Intl Traveler<30days: No Traveled to known affect area: No History of Present Illness HPI 41-year-old female patient who states she has history of HIV not on medication, schizophrenia, psychiatric history, presents to the ER today because she states that she wants to kill herself. She also states that she has been hallucinating but is not able to elaborate on what she is hallucinating about. She states that she thinks she needs help. Modifying Factors: None Associated Signs & Symptoms: Hallucinations, suicidal ideation Risk Factors: Psychiatric history PFSH Past Medical History Diabetes: No Diminished Hearing: No Immunizations Current: Yes Seizures: No ?: Unknown Menopausal: No : 0 Miscarriage: 1 Social History Alcohol Use: No Tobacco Use: Yes (1PPD) Substance Use: No (PT DENIES) Allergies-Medications (Allergen,Severity, Reaction): Coded Allergies: Goose Feathers (Verified Allergy, Severe, 02/10/17) Molds and Smuts (Verified Allergy, Mild, 02/10/17) Reported Meds & Prescriptions Reported Meds & Active Scripts Active K-Tab (Potassium Chloride) 20 Meq Tab 20 Meq PO DAILY Review of Systems Except as stated in HPI: all other systems reviewed are Neg Physical Exam Narrative GENERAL: Well-developed middle age white female patient who is currently mildly agitated, awake and oriented 3. SKIN: Focused skin assessment warm/dry. HEAD: Atraumatic. Normocephalic. EYES: Pupils equal and round. No scleral icterus. No injection or drainage. ENT: No nasal bleeding or discharge. Mucous membranes pink and moist. NECK: Trachea midline. No JVD. CARDIOVASCULAR: Regular rate and rhythm. No murmur appreciated. RESPIRATORY: No accessory muscle use. Clear to auscultation. Breath sounds equal bilaterally. GASTROINTESTINAL: Abdomen soft, non-tender, nondistended. Hepatic and splenic margins not palpable. MUSCULOSKELETAL: No obvious deformities. No clubbing. No cyanosis. No edema. NEUROLOGICAL: Awake and alert. No obvious cranial nerve deficits. Motor grossly within normal limits. Normal speech. PSYCHIATRIC: Agitated mood and affect; insight and judgment normal. Data Data Last Documented VS Vital Signs Date Time Temp Pulse Resp B/P Pulse Ox O2 Delivery O2 Flow Rate FiO2 02/11/17 06:00 98.7 86 16 171/89 98 Orders Complete Blood Count With Diff (02/11/17 06:26) Comprehensive Metabolic Panel (02/11/17 06:26) Psych Screen (02/11/17 06:26) Drug Screen, Random Urine (02/11/17 06:26) Alcohol (Ethanol) (02/11/17 06:26) MDM Medical Decision Making Medical Screen Exam Complete: Yes Emergency Medical Condition: Yes Medical Record Reviewed: Yes Differential Diagnosis Suicidal ideation, agitation, hallucinationpsychosis versus malingering Narrative Course Initial workup was entered with the patient for further psychiatric evaluation. Physician Communication Physician Communication Case is signed out to Dr. Gao at 7 AM pending workup for medical clearance. Diagnosis Primary Impression: Medical clearance for psychiatric admission Condition: Stable Harsh Esteves MD February 11, 2017 06:38
[2017-02-11 07:16] LABS: BASOPHIL % 0.3 % (0.0-2.0); EOSINOPHIL % 0.3 % (0.0-4.0); HEMO FLAGS DIFF FINAL; LYMPH % 9.3 % (9.0-44.0); LYMPHOCYTE # 1.2 TH/MM3 (1.0-4.8); MEAN CELL VOLUME 86.8 FL (80.0-100.0); MEAN CORPUSCULAR HGB CONC 34.6 % (32.0-36.0); MONO % 6.4 % (0.0-8.0); NEUT % 83.7 % (16.0-70.0); PLATELET COUNT 247 TH/MM3 (150-450); RED BLOOD COUNT 4.26 MIL/MM3 (4.00-5.30); RED CELL DISTRIBUTION WIDTH 13.4 % (11.6-17.2); WHITE BLOOD COUNT 13.1 TH/MM3 (4.0-11.0)
[2017-02-11 07:41] LABS: ALKALINE PHOSPHATASE 85 U/L (45-117); ALT (GPT) 83 U/L (10-53); ANION GAP 14 MEQ/L (5-15); AST (GOT) 143 U/L (15-37); BICARBONATE 22.3 MEQ/L (21.0-32.0); BLOOD UREA NITROGEN 2 MG/DL (7-18); CHLORIDE 84 MEQ/L (98-107); GLOMERULAR FILTRATION RATE 115 ML/MIN (>89); TOTAL BILIRUBIN ADULT 0.5 MG/DL (0.2-1.0)
--- NOTE | 2017-02-11 07:52 | PD ---
Data Data Last Documented VS Vital Signs Date Time Temp Pulse Resp B/P Pulse Ox O2 Delivery O2 Flow Rate FiO2 02/11/17 06:00 98.7 86 16 171/89 98 Orders Complete Blood Count With Diff (02/11/17 06:26) Comprehensive Metabolic Panel (02/11/17 06:26) Psych Screen (02/11/17 06:26) Drug Screen, Random Urine (02/11/17 06:26) Alcohol (Ethanol) (02/11/17 06:26) Sodium, Random Urine (02/11/17 08:16) Osmolality, Urine (02/11/17 08:16) Osmolality,Serum (02/11/17 08:16) Potassium Chloride (Kcl) (02/11/17 09:15) Labs Laboratory Tests Test 02/11/17 02/11/17 07:10 08:26 White Blood Count 13.1 TH/MM3 Red Blood Count 4.26 MIL/MM3 Hemoglobin 12.8 GM/DL Hematocrit 37.0 % Mean Corpuscular Volume 86.8 FL Mean Corpuscular Hemoglobin 30.0 PG Mean Corpuscular Hemoglobin 34.6 % Concent Red Cell Distribution Width 13.4 % Platelet Count 247 TH/MM3 Mean Platelet Volume 6.9 FL Neutrophils (%) (Auto) 83.7 % Lymphocytes (%) (Auto) 9.3 % Monocytes (%) (Auto) 6.4 % Eosinophils (%) (Auto) 0.3 % Basophils (%) (Auto) 0.3 % Neutrophils # (Auto) 11.0 TH/MM3 Lymphocytes # (Auto) 1.2 TH/MM3 Monocytes # (Auto) 0.8 TH/MM3 Eosinophils # (Auto) 0.0 TH/MM3 Basophils # (Auto) 0.0 TH/MM3 CBC Comment DIFF FINAL Differential Comment Sodium Level 120 MEQ/L Potassium Level 2.1 MEQ/L Chloride Level 84 MEQ/L Carbon Dioxide Level 22.3 MEQ/L Anion Gap 14 MEQ/L Blood Urea Nitrogen 2 MG/DL Creatinine 0.58 MG/DL Estimat Glomerular Filtration 115 ML/MIN Rate Random Glucose 100 MG/DL Calcium Level 9.2 MG/DL Total Bilirubin 0.5 MG/DL Aspartate Amino Transf 143 U/L (AST/SGOT) Alanine Aminotransferase 83 U/L (ALT/SGPT) Alkaline Phosphatase 85 U/L Total Protein 7.1 GM/DL Albumin 3.6 GM/DL Ethyl Alcohol Level LESS THAN 3 MG/DL Serum Osmolality 245 MOSM/KG MDM Supervised Visit with KULIDP: No Narrative Course Patient signed out to me by previous provider. Please see associated no for further details. In short patient is a 41-year-old female with history of HIV, schizophrenia here for the seventh time recently with suicidal ideation, increasing hallucinations. Patient did not express any medical complaints. Signed out to me pending labs for medical clearance for psychiatric evaluation. CBC, CMP, urine drug screen notable for WBC 13.1, sodium 120, potassium 2.1. Replaced with 80 mEq of potassium orally. Patient does have history of hyponatremia, most recently 132. Days hyponatremia is markedly lower than it has been area patient however is neurologically intact and able ambulate without any difficulty. Neuro intact, I would not treat with hypertonic saline. Urine and serum osmolality and urine sodium was added onto labs and patient will be admitted to medicine with psychiatric consult. Critical Care Narrative Aggregate critical care time was 35 minutes. Time to perform other separately billable procedures was not included in the critical care time. My time did not include minutes spent treating any other patients simultaneously or on activities that did not directly contribute to the patient's treatment. The services I provided to this patient were to treat and/or prevent clinically significant deterioration that could result in: Cardio Pulmonary decompensation , neurologic decompensation, , disability I provided critical care services requiring my management, as noted below: Chart data review, documentation time, medication orders and management, vital sign assessments/reviewing monitor data, ordering and reviewing lab tests, ordering and interpreting/reviewing x-rays and diagnostic studies, care of the patient and discussion of the patient with the admitting physicians. Diagnosis Primary Impression: Hyponatremia Additional Impressions: Medical clearance for psychiatric admission Hypokalemia Admitting Information Admitting Physician Requests: Admit Condition: Stable Olivia Hanna MD February 11, 2017 07:52
[2017-02-11 08:11] LABS: SODIUM (NA) 120 MEQ/L (136-145)
[2017-02-11 08:12] LABS: POTASSIUM 2.1 MEQ/L (3.5-5.1)
[2017-02-11] MEDS ORDERED: POTASSIUM CHLORIDE 20 MEQ CONTROLLED RELEASE TAB PO ONE (09:15)
[2017-02-11 09:45] VITALS: BP 122/60; PULSE 80; RESP 18; O2SAT 96
[2017-02-11 09:46] LABS: AMPHETAMINE, URINE NEG (NEG); BARBITURATES, URINE NEG (NEG); COCAINE, URINE NEG (NEG)
[2017-02-11] MEDS ORDERED: ACETAMINOPHEN 325 MG TAB PO PRN (10:00)
[2017-02-11] MEDS ORDERED: SODIUM CHLORIDE 0.9% FLUSH 10 ML FLUSH IV FLUSH PRN (10:00)
[2017-02-11] MEDS: SODIUM CHLORIDE 0.9% FLUSH 10 ML FLUSH IV FLUSH SCH ×2 (10:00→20:10)
[2017-02-11] MEDS ORDERED: NALOXONE HCL 0.4 MG/ML AMP IV PRN (10:00)
--- NOTE | 2017-02-11 10:04 | HHI.HP ---
[facility] Service Family Medicine Primary Care Physician No Primary Care Physician Admission Diagnosis hyponatremia, hypokalemia, suicidal ideation Diagnoses: International Travel<30 Days: No Contact w/Intl Traveler<30days: No Known Affected Area: No History of Present Illness Germania Hauser is a pleasant 41 year old woman who states she has HIV, also with a PMH of bipolar disorder and schizophrenia who presents to the ED due to suicidal ideations and hallucinations. She is currently homeless. She states she had thoughts of wanting to hurt herself and thought about acting on these thoughts. However before acting on these thoughts she decided to call 911 and was brought to the ED via [facility]. She does not specify what thoughts she had about hurting herself. She does endorse hallucinations for about the past 4 days but does not specify whether she is having auditory or visual hallucinations. She has no other specific medical complaints. She is alert and fully oriented, however appears tired in the ED. She states she has HIV but does not know when this was diagnosed or if she has ever been tested for this. She states she has never seen a physician for this issue and also not does have a primary care physician. She currently denies headaches, visual symptoms, chest pain, SOB, abdominal pain , hematuria, blood in stools, or pain elsewhere. She was able to ambulate within her room without issues per ED physician. (Cipriano Samaniego MD R1) Review of Systems Constitutional: DENIES: Fever Eyes: COMPLAINS OF: Photosensitivity Respiratory: DENIES: Cough, Wheezing, Shortness of breath Cardiovascular: DENIES: Chest pain Gastrointestinal: COMPLAINS OF: Vomiting (Reports she vomited once after arriving here to the ED; denies blood in emesis), DENIES: Abdominal pain, Bloody stools, Constipation, Diarrhea, Nausea Genitourinary: DENIES: Hematuria, Dysuria Integumentary: COMPLAINS OF: Rash Neurologic: DENIES: Abnormal gait, Headache, Localized weakness Psychiatric: COMPLAINS OF: Mood changes, Hallucinations, Suicidal Ideation ( Cipriano Samaniego MD R1) Past Family Social History Past Medical History Pt states she has HIV Bipolar disorder Schizophrenia Past Surgical History Denies (Cipriano Samaniego MD R1) Allergies: Coded Allergies: Goose Feathers (Verified Allergy, Severe, 02/10/17) Molds and Smuts (Verified Allergy, Mild, 02/10/17) Family History Patient states her mother took lithium States her father took antidepressants Social History Homeless Admits to smoking 1 PPD for about the past 10 years Denies etoh intake Denies illicit drug use (Cipriano Samaniego MD R1) Physical Exam Vital Signs Vital Signs Date Time Temp Pulse Resp B/P Pulse Ox O2 Delivery O2 Flow Rate FiO2 02/11/17 09:45 80 18 122/60 96 Room Air 02/11/17 06:00 98.7 86 16 171/89 98 Physical Exam GENERAL: NAD, sleeping in bed, answers questions appropriately, falls back asleep easily NEURO: AOx3. Normal speech. sugar grinder grossly intact. Motor grossly intact. Gait not tested. SKIN: Warm and dry. Scattered pustules along dorsal aspect of her left foot down to lateral part of foot. No drainage. Minimal erythema surrounding lesions. HEAD: Normocephalic. Atraumatic. EYES: PERRL. EOMI. No scleral icterus. No injection or drainage. ENT: No nasal drainage. Moist mucous membranes. No oral ulcers or lesions. NECK: Supple, trachea midline. No lymphadenopathy. CARDIOVASCULAR: Regular rate and rhythm without murmurs, rubs, or gallops. Peripheral pulses 2+. Capillary refill < 2 seconds. RESPIRATORY: Breath sounds clear to auscultation and equal bilaterally, without wheezes, rales, or rhonchi. No accessory muscle use. GASTROINTESTINAL: Abdomen soft, nontender, nondistended, normal BS. No organomegaly or masses. No rebound tenderness. No guarding. MUSCULOSKELETAL: No lower extremity edema. Normal range of motion. BACK: Nontender without obvious deformity. Laboratory Laboratory Tests Test 02/11/17 02/11/17 02/11/17 07:10 08:26 09:18 White Blood Count 13.1 Red Blood Count 4.26 Hemoglobin 12.8 Hematocrit 37.0 Mean Corpuscular Volume 86.8 Mean Corpuscular Hemoglobin 30.0 Mean Corpuscular Hemoglobin 34.6 Concent Red Cell Distribution Width 13.4 Platelet Count 247 Mean Platelet Volume 6.9 Neutrophils (%) (Auto) 83.7 Lymphocytes (%) (Auto) 9.3 Monocytes (%) (Auto) 6.4 Eosinophils (%) (Auto) 0.3 Basophils (%) (Auto) 0.3 Neutrophils # (Auto) 11.0 Lymphocytes # (Auto) 1.2 Monocytes # (Auto) 0.8 Eosinophils # (Auto) 0.0 Basophils # (Auto) 0.0 CBC Comment DIFF FINAL Differential Comment Sodium Level 120 Potassium Level 2.1 Chloride Level 84 Carbon Dioxide Level 22.3 Anion Gap 14 Blood Urea Nitrogen 2 Creatinine 0.58 Estimat Glomerular Filtration 115 Rate Random Glucose 100 Calcium Level 9.2 Total Bilirubin 0.5 Aspartate Amino Transf 143 (AST/SGOT) Alanine Aminotransferase 83 (ALT/SGPT) Alkaline Phosphatase 85 Total Protein 7.1 Albumin 3.6 Ethyl Alcohol Level LESS THAN 3 Serum Osmolality 245 Urine Osmolality 55 Urine Random Sodium 10 Urine Opiates Screen NEG Urine Barbiturates Screen NEG Urine Amphetamines Screen NEG Urine Benzodiazepines Screen NEG Urine Cocaine Screen NEG Urine Cannabinoids Screen NEG (Cipriano Samaniego MD R1) Result Diagram: 02/11/17 0710 02/11/17 0710 Septic Shock Reassessment Heart: Regular rate and rhythm Lungs: Clear Skin: Warm, Dry Peripheral Pulses: Bounding Right Radial Bounding Left Radial Bounding Right Dorsalis Pedis Bounding Left Dorsalis Pedis Bounding Right Posterior Tibial Bounding Left Posterior Tibial Capillary Refill: <2 seconds (Cipriano Samaniego MD R1) Assessment and Plan Assessment and Plan Patient is a 41 year old woman who states she has HIV, also with a PMH of bipolar disorder and schizophrenia brought to the ED via [facility] after calling an ambulance herself due to suicidal ideations and hallucinations. She is found to have severe hyponatremia with a sodium of 120 as well as a potassium of 2.1. Her cause of hyponatremia is unclear at this time but may be due to psychogenic polydipsia, hypothyroidism, alcohol intoxication, vs true volume depletion. She will be admitted to our medicine team for management of her electrolyte abnormalities and psychiatry will be consulted for recommendations in management of her psychiatric disorders. Code Status Full code Discussed Condition With Dr. Deangelo Mckeon, CARLEEN (Cipriano Samaniego MD R1) Attending Attestation Patient seen and examined, discussed with resident team. I agree with assessment and management as documented and discussed with me. The patient has been seen and examined. The chart and all resident notes have been reviewed. I agree that inpatient care is appropriate and that a two midnight stay is expected for the reasons documented in the resident history and physical. I have discussed this with the resident and certify the resident s order for inpatient admission. Pt seen on the floor. She reports feeling better. She reports drinking a large amount of water, juice, and soda daily. She denies nausea, weakness, headache. She does feel a bit anxious. She states that she wants to go back home to [place], [place] and may need case management assistance to help with identification. Sodium is improving 120-->126. IVF stopped and will restart pending recheck of BMP later today. (Tala Alexander MD) Problem List: (1) Hyponatremia Status: Acute Plan: - Na 120 on admission, patient had a Na level of 132 on 02/05 - Serum osmolality of 245; urine osmolality 55 - Patient had a UA obtained 02/10 that was within normal limits - Etoh level < 3 - UDS pending - Glucose is within normal limits at 100; no component of pseudohyponatremia - Can consider obtaining a lipid panel - TSH ordered Plan - Start NS at maintenance rate 105 cc/hr - Repeat BMP for Na level at 11:30 and adjust fluid rate as indicated (2) Hypokalemia Status: Acute Plan: - 2.1 on admission; K was as low as 2.8 on 02/04 - Unclear etiology at this time, GI losses may be contributing as patient did endorse vomiting that is not infrequent - Her anion gap is 14 so do not think there is any metabolic acidosis ongoing which may be contributing to K shifts - Will check a magnesium level and replete if needed - Patient was given 80 mEq by the ED - Continue to trend with next BMP check at 11:30 today (3) Suicidal ideations Status: Acute Plan: - Patient did not specify what suicidal thoughts she had or how close she was to acting on these thoughts - Consult psychiatry, appreciate recommendations (4) HIV (human immunodeficiency virus infection) Status: Acute Plan: - Patient stated she had HIV, however could not specify when she was diagnosed or if she has ever been tested - She stated she has never seen a physician for this in the past - Patient consented to be tested for HIV - HIV antibodies ordered (5) Leukocytosis Status: Acute Plan: - WBC 13.1 on presentation - UA obtained yesterday is clean - Lungs are clear on exam - No other signs of infection based on history or exam - Continue to monitor (6) Nutrition, metabolism, and development symptoms Status: Acute Plan: Fluids: NS at 105 cc/hr Electrolytes managed as above Heart healthy diet DVT prophylaxis: Lovenox 40 mg subq q24h (Cipriano Samaniego MD R1) Physician Certification 2 Midnight Certification Type: Admission for Inpatient Services Order for Inpatient Services The services are ordered in accordance with Medicare regulations or non- Medicare payer requirements, as applicable. In the case of services not specified as inpatient-only, they are appropriately provided as inpatient services in accordance with the 2-midnight benchmark. Estimated LOS (days): 2 days is the estimated time the patient will need to remain in the hospital, assuming treatment plan goals are met and no additional complications. Post-Hospital Plan: Home (Cipriano Samaniego MD R1) Cipriano Samaniego MD R1 February 11, 2017 10:04 Tala Alexander MD February 11, 2017 20:07
[2017-02-11] MEDS ORDERED: SODIUM CHLOR 0.9% 1000 ML INJ 1,000 ML IV SCH (10:30)
--- NOTE | 2017-02-11 10:45 | PD.PN.STU ---
Subjective Remarks Ms. Hauser is a 41 year old with PMH of schizophrenia and bipolar disorder and reported HIV infection. She was brought in by ambulance this morning after having suicidal ideations with an unclear plan and visual and auditory hallucinations. She is not able to describe her plan of suicide or her hallucinations. She reports vomiting this morning but no other symptoms. She has no physician and does not take any medications. She denies any allergies to medications. She does not recall being tested for HIV but states she is infected. ROS: denies headaches, chest pain, shortness of breath, abdominal pain, diarrhea , hematuria, bloody stools reports: sensitivity to light, vomiting, rash PMH: Schizophrenia Bipolar Disorder reported HIV infection PSH: None FH: Mother took [place], Father took anti-depressants SH: Patient is homeless and from [place]. Smokes 1 PPD for 10 years Denies alcohol or drug use Objective Vitals Vital Signs Date Time Temp Pulse Resp B/P Pulse Ox O2 Delivery O2 Flow Rate FiO2 02/11/17 09:45 80 18 122/60 96 Room Air 02/11/17 06:00 98.7 86 16 171/89 98 I/O 02/10/17 02/10/17 02/10/17 02/11/17 02/11/17 02/11/17 06:59 14:59 22:59 06:59 14:59 22:59 Output Total 200 ml Balance -200 ml Output Urine Total 200 ml # Voids 1 Result Diagram: 02/11/17 0710 02/11/17 0710 Objective Remarks GENERAL: Well-nourished, well-developed patient, drowsy, in no acute distress SKIN: Warm and dry. group of small (<5mm) pustules on anterior left foot, feet are covered in dirt HEAD: Normocephalic. EYES: No scleral icterus. No injection or drainage. NECK: Supple, trachea midline. No JVD or lymphadenopathy. CARDIOVASCULAR: Regular rate and rhythm without murmurs, gallops, or rubs. RESPIRATORY: Breath sounds equal bilaterally. No accessory muscle use. No wheezes, rhonchi or rales GASTROINTESTINAL: Abdomen soft, non-tender, nondistended. EXTREMITIES: No cyanosis, or edema. NEUROLOGICAL: drowsy, awakens to voice, oriented x 3 Medications and IVs Current Medications Medications (Trade) Dose Ordered Sig/Jerry Route Start Time Stop Time Status Last Admin (NS 1000 ml Inj) 1,000 ml @ 105 mls/hr [id number] IV 02/11/17 10:30 02/11/17 10:11 (NS Flush) 2 ml UNSCH PRN IV FLUSH 02/11/17 10:00 (NS Flush) 2 ml BID IV FLUSH 02/11/17 10:00 (Tylenol) 650 mg Q4H PRN PO 02/11/17 10:00 (Zofran Inj) 4 mg Q6H PRN IVP 02/11/17 10:00 (Lovenox Inj) 40 mg Q24H SQ 02/11/17 11:00 (Narcan Inj) 0.4 mg UNSCH PRN IV 02/11/17 10:00 A/P Assessment and Plan Ms. Hauser is a 41 year old female with a PMH of schizophrenia, bipolar disorder and reported HIV infection. She is being admitted for suicidal ideation, hallucinations, and hyponatremia. Hyponatremia Na 120 on admission Will start maintenence NS at 105ml/hr Recheck BMP in 4 hours Hypokalemia K 2.1 on admission 80meq KCl given in ED will recheck BMP Suicidal Ideation- unclear plan Consult Psychiatry Salina Mckeon M3 February 11, 2017 10:45
[2017-02-11] MEDS: ENOXAPARIN SODIUM 40 MG/0.4 ML SYRINGE SQ SCH (10:49)
[2017-02-11 12:00] VITALS: BP 112/65; PULSE 63; RESP 17; TEMP 97.5; O2SAT 95
[2017-02-11 12:20] LABS: MAGNESIUM 1.9 MG/DL (1.5-2.5)
[2017-02-11 13:46] LABS: BICARBONATE 21.4 MEQ/L (21.0-32.0)
[2017-02-11 13:49] LABS: POTASSIUM 2.3 MEQ/L (3.5-5.1)
[2017-02-11] MEDS: POTASSIUM CHLORIDE 20 MEQ CONTROLLED RELEASE TAB PO ONE ×2 (14:51→17:01)
[2017-02-11] MEDS: ONDANSETRON HCL 4 MG/2 ML VIAL IVP PRN (14:58)
--- NOTE | 2017-02-11 15:50 | EKG ---
Date Performed: 02/11/2017 Time Performed: 09:33:12 PTAGE: 41 years EKG: Sinus rhythm POSSIBLE RIGHT ATRIAL ENLARGEMENT POSSIBLE LEFT ATRIAL ENLARGEMENT NONSPECIFIC T-WAVE ABNORMALITY ERICK RDERLINE ECG NO PREVIOUS TRACING DOCTOR: Ingrid Benson Interpretating Date/Time 02/11/2017 15:47:29
[2017-02-11 16:00] VITALS: BP 116/59; PULSE 68; RESP 18; TEMP 97.4; O2SAT 97
[2017-02-11] MEDS: clonazePAM 0.5 MG TAB PO PRN (17:00)
[2017-02-11] MEDS ORDERED: POTASSIUM CHLORIDE 25 MEQ EFFERVESCENT TAB PO ONE (19:00)
[2017-02-11 19:30] LABS: BICARBONATE 24.3 MEQ/L (21.0-32.0)
[2017-02-11 19:36] LABS: POTASSIUM 2.9 MEQ/L (3.5-5.1)
[2017-02-11 20:00] VITALS: BP 108/72; PULSE 65; PULSE 66; RESP 17; TEMP 97.6; O2SAT 97
[2017-02-12] VITALS: BP 100/66; PULSE 61; RESP 17; TEMP 98.8; O2SAT 97
[2017-02-12 01:35] LABS: BICARBONATE 22.5 MEQ/L (21.0-32.0)
[2017-02-12 01:41] LABS: POTASSIUM 2.9 MEQ/L (3.5-5.1)
[2017-02-12 04:00] VITALS: BP 94/53; PULSE 80; RESP 17; TEMP 96.6; O2SAT 97
[2017-02-12] MEDS: POTASSIUM CHLORIDE 10 MEQ CONTROLLED RELEASE TAB PO ONE ×2 (04:00→04:56)
[2017-02-12 07:13] LABS: AUTOMATED NEUTROPHIL # 5.8 TH/MM3 (1.8-7.7); BASOPHIL % 0.4 % (0.0-2.0); EOSINOPHIL # 0.1 TH/MM3 (0-0.4); EOSINOPHIL % 1.2 % (0.0-4.0); HEMATOCRIT 38.9 % (35.0-46.0); HEMO FLAGS DIFF FINAL; LYMPH % 17.6 % (9.0-44.0); LYMPHOCYTE # 1.4 TH/MM3 (1.0-4.8); MEAN CELL VOLUME 88.2 FL (80.0-100.0); MEAN CORPUSCULAR HEMOGLOBIN 30.9 PG (27.0-34.0); MEAN CORPUSCULAR HGB CONC 35.1 % (32.0-36.0); MONO % 7.9 % (0.0-8.0); NEUT % 72.9 % (16.0-70.0); PLATELET COUNT 283 TH/MM3 (150-450); RED BLOOD COUNT 4.41 MIL/MM3 (4.00-5.30); RED CELL DISTRIBUTION WIDTH 13.6 % (11.6-17.2)
--- NOTE | 2017-02-12 07:14 | PD.PN.STU ---
Subjective Remarks Patient seen and examined this morning. Sitter at bedside. Vital signs stable. Still reporting suicidal/homicidal ideations and hallucinations of lights. She is unclear about her thought of harming herself or others. She has possibly delusions of being knocked out and threatened to be paralyzed. She has excessive thirst and reportedly drinks a lot of cranberry juice on a regular basis. She denies any pain or problems. Wants to get up, shower and call her mother. Objective Vitals Vital Signs Date Time Temp Pulse Resp B/P Pulse Ox O2 Delivery O2 Flow Rate FiO2 02/12/17 04:00 96.6 80 17 94/53 97 02/12/17 00:00 98.8 61 17 100/66 97 02/11/17 20:00 97.6 65 17 108/72 97 02/11/17 20:00 66 02/11/17 16:00 97.4 68 18 116/59 97 02/11/17 12:00 97.5 63 17 112/65 95 02/11/17 09:45 80 18 122/60 96 Room Air I/O 02/11/17 02/11/17 02/11/17 02/12/17 02/12/17 02/12/17 07:00 15:00 23:00 07:00 15:00 23:00 Intake Total 0 ml 240 ml 480 ml Output Total 200 ml Balance -200 ml 240 ml 480 ml Intake Oral 0 ml 240 ml 480 ml IV Total 0 ml Output Urine Total 200 ml # Voids 1 1 1 # Bowel Movements 0 Result Diagram: 02/11/17 0710 02/12/17 0047 Objective Remarks GENERAL: Well-nourished, well-developed patient, in no acute distress SKIN: Warm and dry. group of small (<5mm) pustules on anterior left foot, feet are covered in dirt HEAD: Normocephalic. EYES: No scleral icterus. No injection or drainage. NECK: Supple, trachea midline. No JVD or lymphadenopathy. CARDIOVASCULAR: Regular rate and rhythm without murmurs, gallops, or rubs. RESPIRATORY: Breath sounds equal bilaterally. No accessory muscle use. No wheezes, rhonchi or rales GASTROINTESTINAL: Abdomen soft, non-tender, nondistended. EXTREMITIES: No cyanosis, or edema. NEUROLOGICAL: alert and awake. oriented x 3 Medications and IVs Current Medications Medications (Trade) Dose Ordered Sig/Jerry Route Start Time Stop Time Status Last Admin (NS Flush) 2 ml UNSCH PRN IV FLUSH 02/11/17 10:00 (NS Flush) 2 ml BID IV FLUSH 02/11/17 10:00 02/11/17 20:10 (Tylenol) 650 mg Q4H PRN PO 02/11/17 10:00 (Zofran Inj) 4 mg Q6H PRN IVP 02/11/17 10:00 02/11/17 14:58 (Lovenox Inj) 40 mg Q24H SQ 02/11/17 11:00 02/11/17 10:49 (Narcan Inj) 0.4 mg UNSCH PRN IV 02/11/17 10:00 (KlonoPIN) 0.5 mg Q6HR PRN PO 02/11/17 15:45 02/11/17 17:00 A/P Assessment and Plan Ms. Hauser is a 41 year old female with a PMH of schizophrenia, bipolar disorder and reported HIV infection. She is being admitted for suicidal ideation, hallucinations, and hyponatremia. Hyponatremia Na 120 on admission, 137 on 02/12 at 0600 Stop maintenence NS at 105ml/hr Recheck BMP Q6H Hypokalemia K 2.1 on admission 2.9 on 02/12 at 0600 80meq KCl given in ED, additional 50meq given overnight Give another 80meq KCl will recheck BMP Q6H Telemetry Suicidal Ideation- unclear plan Consult Psychiatry HIV infection -HIV antibody screen -Hepatitis antibody screen Salina Mckeon February 12, 2017 07:14
[2017-02-12 07:43] LABS: BICARBONATE 20.7 MEQ/L (21.0-32.0); MAGNESIUM 2.3 MG/DL (1.5-2.5)
[2017-02-12 07:49] LABS: POTASSIUM 2.9 MEQ/L (3.5-5.1)
[2017-02-12 07:55] VITALS: BP 111/53; PULSE 67; RESP 18; TEMP 98.5; O2SAT 96
--- NOTE | 2017-02-12 08:21 | HHI.DCPOC ---
Discharge Care Plan Diagnosis: (1) Hypokalemia (2) Suicidal ideations (3) Hyponatremia (4) Hypokalemia due to inadequate potassium intake Goals to Promote Your Health * To prevent worsening of your condition and complications * To maintain your health at the optimal level Directions to Meet Your Goals Take your medications as prescribed Follow your dietary instruction Follow activity as directed Keep your appointments as scheduled Take your immunizations and boosters as scheduled If your symptoms worsen call your PCP, if no PCP go to Urgent Care Center or Emergency Room Smoking is Dangerous to Your Health. Avoid second hand smoke Call the 24-hour hour crisis hotline for domestic abuse at Lisa Arana MD February 12, 2017 08:21
[2017-02-12 08:37] VITALS: PULSE 65
--- NOTE | 2017-02-12 08:45 | HHI.FPPN ---
Subjective Remarks Patient seen and examined this AM. No acute events overnight. Afebrile, vitals are stable. Patient has no medical complaints this AM. Eating breakfast, tolerating diet well. She expresses concerns that someone has been trying to "punch her and knock her out and paralyze her." She then asks for "nerve x-rays. " She denies pain currently. Denies fevers, CP, SOB. (Cipriano Samaniego MD R1) Objective Vitals Vital Signs Date Time Temp Pulse Resp B/P Pulse Ox O2 Delivery O2 Flow Rate FiO2 02/12/17 07:55 98.5 67 18 111/53 96 02/12/17 04:00 96.6 80 17 94/53 97 02/12/17 00:00 98.8 61 17 100/66 97 02/11/17 20:00 97.6 65 17 108/72 97 02/11/17 20:00 66 02/11/17 16:00 97.4 68 18 116/59 97 02/11/17 12:00 97.5 63 17 112/65 95 02/11/17 09:45 80 18 122/60 96 Room Air I/O 02/11/17 02/11/17 02/11/17 02/12/17 02/12/17 02/12/17 07:00 15:00 23:00 07:00 15:00 23:00 Intake Total 0 ml 240 ml 480 ml 120 ml Output Total 200 ml Balance -200 ml 240 ml 480 ml 120 ml Intake Oral 0 ml 240 ml 480 ml 120 ml IV Total 0 ml Output Urine Total 200 ml # Voids 1 1 1 # Bowel Movements 0 (Cipriano Samaniego MD R1) Result Diagram: 02/12/17 0607 02/12/17 0607 Objective Remarks GENERAL: NAD, sitting up in bed eating breakfast, answers questions appropriately NEURO: AOx3. Normal speech. bus person dishwasher grossly intact. Motor grossly intact. SKIN: Warm and dry. Scattered pustules along dorsal aspect of her left foot down to lateral part of foot. No drainage. Minimal erythema surrounding lesions. HEAD: Normocephalic. Atraumatic. EYES: EOMI. No scleral icterus. No injection or drainage. ENT: No nasal drainage. Moist mucous membranes. No oral ulcers or lesions. NECK: Supple, trachea midline. No lymphadenopathy. CARDIOVASCULAR: Regular rate and rhythm without murmurs, rubs, or gallops. Peripheral pulses 2+. RESPIRATORY: Breath sounds clear to auscultation and equal bilaterally, without wheezes, rales, or rhonchi. No accessory muscle use. GASTROINTESTINAL: Abdomen soft, nontender, nondistended, normal BS. MUSCULOSKELETAL: No lower extremity edema. Normal range of motion. BACK: Nontender without obvious deformity. (Cipriano Samaniego MD R1) A/P Assessment and Plan Patient is a 41 year old woman who states she has HIV, also with a PMH of bipolar disorder and schizophrenia brought to the ED via [facility] after calling an ambulance herself due to suicidal ideations and hallucinations. She was found to have severe hyponatremia with a sodium of 120 as well as a potassium of 2.1 that have been monitored during her hospitalization here and are now stable. 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 Psychiatry has been consulted for recommendations in management of her psychiatric disorders. Discharge Planning Medically cleared for discharge today 02/12. (Cipriano Samaniego MD R1) Attending Attestation Patient seen, examined, and discussed with resident team. I agree with assessment and management as documented and discussed with me. Medically, patient has improved, with normalization of sodium levels. Await evaluation by psychiatry. (Tala Alexander MD) Problem List: (1) Hyponatremia Status: Resolved Plan: - Na 120 on admission, patient had a Na level of 132 on 02/05 - Now within normal limits at 137 - Serum osmolality of 245; urine osmolality 55 - UA obtained 02/10 WNLs - Etoh level < 3 - UDS negative - TSH WNLs - Fluids discontinued - Tolerating diet well (2) Hypokalemia Status: Acute Plan: - 2.1 on admission; K was as low as 2.8 on 02/04 - GI losses may be contributing as patient did endorse vomiting that is not infrequent - Her anion gap is 14 so do not think there is any metabolic acidosis ongoing which may be contributing to K shifts - Mg WNLs - K has uptrended to 2.9, additional 80 mEq repletion ordered this AM (3) Suicidal ideations Status: Acute Plan: - Patient did not specify what suicidal thoughts she had or how close she was to acting on these thoughts - Consult psychiatry, appreciate recommendations (4) HIV (human immunodeficiency virus infection) Status: Acute Plan: - Patient stated she had HIV, however could not specify when she was diagnosed or if she has ever been tested - She stated she has never seen a physician for this in the past - Patient consented to be tested for HIV - HIV antibodies still pending - Hepatitis panel pending (5) Leukocytosis Status: Resolved Plan: - WBC 13.1 on presentation; now normalized - UA is clean - No signs of infection with history or exam (6) Nutrition, metabolism, and development symptoms Status: Acute Plan: Fluids: IVF discontinued. Tolerating PO. Electrolytes managed as above Heart healthy diet DVT prophylaxis: Lovenox 40 mg subq q24h (Cipriano Samaniego MD R1) Cipriano Samaniego MD R1 February 12, 2017 08:45 Tala Alexander MD February 12, 2017 20:31
[2017-02-12] MEDS: ONDANSETRON HCL 4 MG/2 ML VIAL IVP PRN (08:56)
[2017-02-12] MEDS: SODIUM CHLORIDE 0.9% FLUSH 10 ML FLUSH IV FLUSH SCH (08:57)
[2017-02-12] MEDS: clonazePAM 0.5 MG TAB PO PRN ×2 (08:57→15:58)
[2017-02-12] MEDS ORDERED: POTASSIUM CHLORIDE 20 MEQ CONTROLLED RELEASE TAB PO ONE (09:00)
[2017-02-12] MEDS: ENOXAPARIN SODIUM 40 MG/0.4 ML SYRINGE SQ SCH (11:41)
[2017-02-12 12:00] VITALS: BP 97/49; PULSE 68; RESP 17; TEMP 96.9; O2SAT 95
--- NOTE | 2017-02-12 15:21 | PD.CONS ---
Provisional Diagnosis Admission Date February 11, 2017 at 09:32 [place] I. Adjustment disorder with depressed mood, bipolar disorder [place] II. 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 HIV, anemia [place] IV. Homelessness, well-documented history of malingering [place] V. 55 History of Present Illness Service Psychiatry Consult Requested By Primary Care Physician No Primary Care Physician HPI The patient is a 41-year-old woman, homeless, unemployed, with reported history of bipolar disorder, schizophrenia, several psychiatric hospitalizations, however few psychiatric contacts in [place], extensive documented history of malingering in the ER, who states she has HIV brought to the ED via [facility] after calling an ambulance herself due to suicidal ideations and hallucinations. She was found to have severe hyponatremia with a sodium of 120 as well as a potassium of 2.1 that have been monitored during her hospitalization here and are now stable. 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 Her toxicology is negative. On psychiatric evaluation patient is found deeply slept. She was very difficult to arouse. Once awaken she asked for breakfast, she was very oppositional and resistant to the psychiatric evaluation. She says that she has history of anxiety and she hasn't taken her Xanax. When asked about who is prescribing her Xanax and how many milligrams is she taking, she became even more oppositional stating that she wants to commit suicide. She doesn't endorse plan. Patient decided then to stop talking with me, and stated "get out of here I don't need you". Review of Systems Constitutional: DENIES: Diaphoretic episodes, Fatigue, Fever, Weight gain, Weight loss, Chills, Dizziness, Change in appetite, Night Sweats Endocrine: DENIES: Abnorml menstrual pattern, Heat/cold intolerance, Polydipsia , Polyuria, Polyphagia Eyes: DENIES: Blurred vision, Diplopia, Eye inflammation, Eye pain, Vision loss , Photosensitivity, Double Vision Ears, nose, mouth, throat: DENIES: Tinnitus, Hearing loss, Vertigo, Nasal discharge, Oral lesions, Throat pain, Hoarseness, Ear Pain, Running Nose, Epistaxis, Sinus Pain, Toothache, Odynophagia Respiratory: DENIES: Apneas, Cough, Snoring, Wheezing, Hemoptysis, Sputum production, Shortness of breath Cardiovascular: DENIES: Chest pain, Palpitations, Syncope, Dyspnea on Exertion , PND, Lower Extremity Edema, Orthopnea, Claudication Gastrointestinal: DENIES: Abdominal pain, Black stools, Bloody stools, Constipation, Diarrhea, Nausea, Vomiting, Difficulty Swallowing, Anorexia Genitourinary: DENIES: Abnormal vaginal bleeding, Dysmenorrhea, Dyspareunia, Sexual dysfunction, Urinary frequency, Urinary incontinence, Urgency, Hematuria , Dysuria, Nocturia, Vaginal discharge Musculoskeletal: DENIES: Joint pain, Muscle aches, Stiffness, Joint Swelling, Back pain, Neck pain Integumentary: DENIES: Abnormal pigmentation, Pruritus, Rash, Nail changes, Breast masses, Breast skin changes, Nipple discharge Hematologic/lymphatic: DENIES: Bruising, Lymphadenopathy Immunologic/allergic: DENIES: Eczema, Urticaria Neurologic: DENIES: Abnormal gait, Headache, Localized weakness, Paresthesias, Seizures, Speech Problems, Tremor, Poor Balance Psychiatric: DENIES: Anxiety, Confusion, Mood changes, Depression, Hallucinations, Agitation, Suicidal Ideation, Homicidal Ideation, Delusions Past Family Social History Coded Allergies: Goose Feathers (Verified Allergy, Severe, 02/10/17) Molds and Smuts (Verified Allergy, Mild, 02/10/17) Discontinued Scripts Potassium Chloride ER (K-Tab)20 Meq Tab20 Meq PO DAILY #10 TAB Ref 0 Prov:Sean Marie MD 02/05/17 Current Medications Medications (Trade) Dose Ordered Sig/Jerry Route Start Time Stop Time Status Last Admin (NS Flush) 2 ml UNSCH PRN IV FLUSH 02/11/17 10:00 (NS Flush) 2 ml BID IV FLUSH 02/11/17 10:00 02/12/17 08:57 (Tylenol) 650 mg Q4H PRN PO 02/11/17 10:00 (Zofran Inj) 4 mg Q6H PRN IVP 02/11/17 10:00 02/12/17 08:56 (Lovenox Inj) 40 mg Q24H SQ 02/11/17 11:00 02/12/17 11:41 (Narcan Inj) 0.4 mg UNSCH PRN IV 02/11/17 10:00 (KlonoPIN) 0.5 mg Q6HR PRN PO 02/11/17 15:45 02/12/17 08:57 Physical Exam Vital Signs Vital Signs Date Time Temp Pulse Resp B/P Pulse Ox O2 Delivery O2 Flow Rate FiO2 02/12/17 12:00 96.9 68 17 97/49 95 02/11/17 09:45 Room Air I/O 02/11/17 02/11/17 02/11/17 07:59 15:59 23:59 Intake Total 0 ml 240 ml Output Total 200 ml Balance -200 ml 240 ml Mental Status Examination Appearance woman, disheveled, poor hygiene, oppositional, resistant poorly cooperative Speech: Hesitant Orientation: x3 Memory: Unremarkable Thought Process: Logical, Goal Directed Hallucination Type: None Attention and Concentration: Good Suicidal Ideation: Yes Previous Suicide Attempts: No Homicidal Ideation: No Affect: Irritable, Oppositional Mood: Angry Motor Activity: Normal gait Assessment & Plan Problem List: (1) Malingering ICD Code: Z76.5 (2) Adjustment disorder with depressed mood Assessment & Plan: On psychiatric evaluation patient is found the police sleeping, without any distress, her first question was to ask for food. Her second question was to ask for Xanax for anxiety. However patient is unable to provide a history of consistent outpatient psychiatric care or a reliable source of Xanax prescriptions in the community. Once I clarified the Xanax is not currently prescribed patient becomes oppositional and resistant and also verbally hostile. She endorses suicidal ideation, but no plan. Patient has an strong history of noncompliance with medications, and malingering. It is my opinion that patient is using suicidality in order to manipulate and get attention in the hospital. I did not think that the patient needs psychiatric admission. Due to her history of character pathology a psychiatric hospitalization would not be beneficial in this patient. Avoid benzodiazepines. ICD Code: F43.21 Assessment & Plan Estimated LOS: Suraj Philippe MD February 12, 2017 15:21
[2017-02-12 16:00] VITALS: BP 96/53; PULSE 95; RESP 20; TEMP 97.8; O2SAT 96
[2017-02-12] MEDS ORDERED: POTA20TA5 PO (16:28)
== END 2017-02-12 18:00 | disposition home or self-care (01) | DRG 641 ==
LOC: NEPC 05:55 → NEDA 09:32 → N07B 11:40
PROVIDERS: ADMIT Family Medicine; ATTEND Family Medicine
DX: E87.1 Hypo-osmolality and hyponatremia (principal); R45.851 Suicidal ideations; F31.30 Bipolar disorder, current episode depressed, mild or moderate severity, unspecified; R44.0 Auditory hallucinations; E87.6 Hypokalemia; D72.829 Elevated white blood cell count, unspecified; D64.9 Anemia, unspecified; R63.1 Polydipsia; R45.850 Homicidal ideations; F17.210 Nicotine dependence, cigarettes, uncomplicated; F43.21 Adjustment disorder with depressed mood; Z59.0 Homelessness; Z76.5 Malingerer [conscious simulation]; Z91.14 Patient's other noncompliance with medication regimen
CPT/HCPCS: 80048; 80053; 80074; 80307; 82948; 83735; 83930; 83935; 84300; 84443; 85025; 86703; 93005; J1650; J2405; J7030

== ENCOUNTER 2017-07-11 22:22 | Emergency (ER) | payer SELFPAY ==
[~2017-07-11] VITALS: Ht 160 cm; Wt 60.0 kg
[~2017-07-11 22:22] MED LIST changes: -NITR100C4 PO; -POTA1TAB4 PO; +POTA20TA5 PO
[2017-07-11 22:24] VITALS: BP 124/87; PULSE 76; RESP 16; TEMP 98.5; O2SAT 98
[2017-07-12] MEDS ORDERED: SODIUM CHLOR 0.9% 1000 ML INJ 1,000 ML IV ONE (01:00)
--- NOTE | 2017-07-12 01:06 | PD ---
HPI Chief Complaint: GI Complaint Time Seen by Provider: 00:56 Travel History International Travel<30 days: No Contact w/Intl Traveler<30days: No Traveled to known affect area: No History of Present Illness HPI 42-year-old female complains of persistent nausea vomiting and dehydration. Patient states that she has been vomiting all day today. Patient denies any headache. Patient denies any chest pain or shortness of breath. Patient denies abdominal pain. Patient denies any focal weakness or numbness of extremity. Patient was admitted to [facility] May of this year with diagnosis of hyponatremia, hypokalemia, suicide ideation. Patient also has history of bipolar disorder and schizophrenia. Electrolyte abnormality was found to be secondary to psychogenic polydipsia. [facility] Past Medical History Medical History: Denies Significant Hx Diabetes: No Diminished Hearing: No Immunizations Current: Yes Seizures: No Tetanus Vaccination: Unknown ?: Not LMP: 07/11/2017 Menopausal: No : 0 Miscarriage: 1 Past Surgical History Surgical History: No Previous Surgery Social History Alcohol Use: No Tobacco Use: Yes (1PPD) Substance Use: No (denies) Allergies-Medications (Allergen,Severity, Reaction): Coded Allergies: feathers (Unverified Allergy, Severe, 05/10/17) mold (Unverified Allergy, Mild, 05/10/17) Reported Meds & Prescriptions Reported Meds & Active Scripts Active Potassium Chloride Microencaps 20 Meq Tab 20 Meq PO Q12HR Review of Systems General / Constitutional: No: Fever Eyes: No: Visual changes HENT: No: Headaches Cardiovascular: No: Chest Pain or Discomfort Respiratory: No: Shortness of Breath Gastrointestinal: Positive: Nausea, Vomiting, No: Abdominal Pain Genitourinary: No: Dysuria Musculoskeletal: No: Pain Skin: No Rash Neurologic: No: Weakness Psychiatric: No: Depression Endocrine: No: Polydipsia Hematologic/Lymphatic: No: Easy Bruising Physical Exam Narrative GENERAL: Well-nourished, well-developed patient. SKIN: Focused skin assessment warm/dry. HEAD: Normocephalic. EYES: No scleral icterus. No injection or drainage. NECK: Supple, trachea midline. No JVD or lymphadenopathy. CARDIOVASCULAR: Regular rate and rhythm without murmurs, gallops, or rubs. RESPIRATORY: Breath sounds equal bilaterally. No accessory muscle use. GASTROINTESTINAL: Abdomen soft, nondistended. Patient has mild diffuse tenderness over the abdomen. No rebound tenderness. No mass. MUSCULOSKELETAL: No cyanosis, or edema. BACK: Nontender without obvious deformity. No CVA tenderness. Neurologic exam normal. Data Data Last Documented VS Vital Signs Date Time Temp Pulse Resp B/P (MAP) Pulse Ox O2 Delivery O2 Flow Rate FiO2 07/11/17 22:24 98.5 76 16 124/87 (99) 98 Orders Orders Complete Blood Count With Diff (07/12/17 00:58) Comprehensive Metabolic Panel (07/12/17 00:58) Lipase (07/12/17 00:58) Urinalysis - C+S If Indicated (07/12/17 00:58) Magnesium (Mg) (07/12/17 00:58) Phosphorus (Po4) (07/12/17 00:58) Chest, Single Ap (07/12/17 00:58) Iv Access Insert/Monitor (07/12/17 00:58) Ecg Monitoring (07/12/17 00:58) Oximetry (07/12/17 00:58) Drug Screen, Random Urine (07/12/17 00:58) Alcohol (Ethanol) (07/12/17 00:58) Ns (Bolus) Inj (07/12/17 01:00) MDM Medical Decision Making Medical Screen Exam Complete: Yes Emergency Medical Condition: Yes Differential Diagnosis Differential diagnosis including gastroenteritis, dehydration, electrolyte abnormality. Narrative Course 42-year-old female with history of persistent vomiting all day today and dehydration. Patient was admitted in the past for psychiatric symptoms and electrolyte abnormality. Normal saline solution 1 L IV bolus. Zofran 4 mg IV. Liang Farrell MD Jul 12, 2017 01:06
[2017-07-12 01:15] LABS: BASOPHIL # 0.1 TH/MM3 (0-0.2); BASOPHIL % 0.7 % (0.0-2.0); EOSINOPHIL # 0.2 TH/MM3 (0-0.4); EOSINOPHIL % 1.9 % (0.0-4.0); HEMATOCRIT 38.1 % (35.0-46.0); HEMO FLAGS DIFF FINAL; LYMPH % 37.3 % (9.0-44.0); LYMPHOCYTE # 3.5 TH/MM3 (1.0-4.8); MEAN CELL VOLUME 92.6 FL (80.0-100.0); MEAN CORPUSCULAR HEMOGLOBIN 31.4 PG (27.0-34.0); MEAN CORPUSCULAR HGB CONC 33.9 % (32.0-36.0); MONO % 7.2 % (0.0-8.0); NEUT % 52.9 % (16.0-70.0); PLATELET COUNT 263 TH/MM3 (150-450); RED BLOOD COUNT 4.11 MIL/MM3 (4.00-5.30); WHITE BLOOD COUNT 9.5 TH/MM3 (4.0-11.0)
[2017-07-12 01:26] LABS: ALT (GPT) 20 U/L (10-53); ANION GAP 6 MEQ/L (5-15); AST (GOT) 18 U/L (15-37); BICARBONATE 26.7 MEQ/L (21.0-32.0); BLOOD UREA NITROGEN 10 MG/DL (7-18); CHLORIDE 108 MEQ/L (98-107); GLOMERULAR FILTRATION RATE 112 ML/MIN (>89); POTASSIUM 3.5 MEQ/L (3.5-5.1); SODIUM (NA) 141 MEQ/L (136-145)
[2017-07-12 01:28] LABS: ALKALINE PHOSPHATASE 67 U/L (45-117); TOTAL BILIRUBIN ADULT 0.2 MG/DL (0.2-1.0)
[2017-07-12 01:47] LABS: ALCOHOL LESS THAN 3 MG/DL (0-5)
--- NOTE | 2017-07-12 01:53 | RADRPT ---
EXAM DATE/TIME: 07/12/2017 02:07 [place] COMPARISON: No previous studies available for comparison. INDICATIONS : Short of breath. MEDICAL HISTORY : None. SURGICAL HISTORY : None. ENCOUNTER: Initial ACUITY: 1 day PAIN SCORE: 0/10 LOCATION: Bilateral chest FINDINGS: A single view of the chest demonstrates the lungs to be symmetrically aerated without evidence of mas s, infiltrate or effusion. The cardiomediastinal contours are unremarkable. Osseous structures are intact. CONCLUSION: 1. No acute cardiopulmonary disease. Tony Tavares MD on July 12, 2017 at 1:52 Board Certified Radiologist. This report was verified electronically.
[2017-07-12 03:27] LABS: BACTERIA, URINE MOD /hpf; BLOOD, URINE LARGE (NEG); COMMENT (UR) CULTURE INDICATED; CULTURE IF INDICATED CULTURE INDICATED; GLUCOSE,URINE NEG (NEG); KETONE, URINE NEG (NEG); MUCUS URINE MOD /lpf (OCC); NITRITE,URINE NEG (NEG); SQUAMOUS EPITHELIAL CELL URINE 1 /hpf (0-5)
[2017-07-12 03:30] LABS: URINE COLOR LIGHT-RED (YELLW/STRAW)
[2017-07-12] MEDS ORDERED: cefTRIAXone INJ 1,000 MG in SODIUM CHLORIDE 0.9% INJ 100 ML IV ONE (03:45)
[2017-07-12] MEDS ORDERED: CEPH-460 PO (03:48)
--- NOTE | 2017-07-12 03:48 | PD ---
Physical Exam Date Seen by Provider: Jul 12, 2017 Time Seen by Provider: 03:44 Narrative For full history and physical examination please see previous provider's note. I assumed care of this patient at the end of my attending physician shift. Data Data Last Documented VS Vital Signs Date Time Temp Pulse Resp B/P (MAP) Pulse Ox O2 Delivery O2 Flow Rate FiO2 07/11/17 22:24 98.5 76 16 124/87 (99) 98 Orders Orders Complete Blood Count With Diff (07/12/17 00:58) Comprehensive Metabolic Panel (07/12/17 00:58) Lipase (07/12/17 00:58) Urinalysis - C+S If Indicated (07/12/17 00:58) Magnesium (Mg) (07/12/17 00:58) Phosphorus (Po4) (07/12/17 00:58) Chest, Single Ap (07/12/17 00:58) Iv Access Insert/Monitor (07/12/17 00:58) Ecg Monitoring (07/12/17 00:58) Oximetry (07/12/17 00:58) Drug Screen, Random Urine (07/12/17 00:58) Alcohol (Ethanol) (07/12/17 00:58) Sodium Chlor 0.9% 1000 Ml Inj (Ns 1000 M (07/12/17 01:00) Urine Culture (07/12/17 03:10) Ceftriaxone Inj (Rocephin Inj) (07/12/17 03:45) Ed Discharge Order (07/12/17 03:43) Labs Laboratory Tests Test 07/12/17 00:55 07/12/17 03:10 White Blood Count 9.5 TH/MM3 Red Blood Count 4.11 MIL/MM3 Hemoglobin 12.9 GM/DL Hematocrit 38.1 % Mean Corpuscular Volume 92.6 FL Mean Corpuscular Hemoglobin 31.4 PG Mean Corpuscular Hemoglobin Concent 33.9 % Red Cell Distribution Width 14.0 % Platelet Count 263 TH/MM3 Mean Platelet Volume 7.8 FL Neutrophils (%) (Auto) 52.9 % Lymphocytes (%) (Auto) 37.3 % Monocytes (%) (Auto) 7.2 % Eosinophils (%) (Auto) 1.9 % Basophils (%) (Auto) 0.7 % Neutrophils # (Auto) 5.0 TH/MM3 Lymphocytes # (Auto) 3.5 TH/MM3 Monocytes # (Auto) 0.7 TH/MM3 Eosinophils # (Auto) 0.2 TH/MM3 Basophils # (Auto) 0.1 TH/MM3 CBC Comment DIFF FINAL Differential Comment Blood Urea Nitrogen 10 MG/DL Creatinine 0.59 MG/DL Random Glucose 77 MG/DL Total Protein 6.9 GM/DL Albumin 3.5 GM/DL Calcium Level 8.3 MG/DL Phosphorus Level 4.6 MG/DL Magnesium Level 2.0 MG/DL Alkaline Phosphatase 67 U/L Aspartate Amino Transf (AST/SGOT) 18 U/L Alanine Aminotransferase (ALT/SGPT) 20 U/L Total Bilirubin 0.2 MG/DL Sodium Level 141 MEQ/L Potassium Level 3.5 MEQ/L Chloride Level 108 MEQ/L Carbon Dioxide Level 26.7 MEQ/L Anion Gap 6 MEQ/L Estimat Glomerular Filtration Rate 112 ML/MIN Lipase 200 U/L Ethyl Alcohol Level LESS THAN 3 MG/DL Urine Color LIGHT-RED Urine Turbidity HAZY Urine pH 5.0 Urine Specific [place] 1.009 Urine Protein 30 mg/dL Urine Glucose (UA) NEG mg/dL Urine Ketones NEG mg/dL Urine Occult Blood LARGE Urine Nitrite NEG Urine Bilirubin NEG Urine Urobilinogen LESS THAN 2.0 MG/DL Urine Leukocyte Esterase TRACE Urine RBC /hpf Urine WBC 27 /hpf Urine Squamous Epithelial Cells 1 /hpf Urine Amorphous Sediment RARE Urine Bacteria MOD /hpf Urine Mucus MOD /lpf Microscopic Urinalysis Comment CULTURE INDICATED Urine Opiates Screen NEG Urine Barbiturates Screen NEG Urine Amphetamines Screen NEG Urine Benzodiazepines Screen NEG Urine Cocaine Screen NEG Urine Cannabinoids Screen NEG MDM Medical Record Reviewed: Yes Supervised Visit with KULDIP: Yes Interpretation(s) Last Impressions Chest X-Ray 07/12/17 0058 Signed Impressions: Service Date/Time: Wednesday, July 12, 2017 02:07 - CONCLUSION: 1. No acute cardiopulmonary disease. Tony Tavares MD Laboratory Tests Test 07/12/17 00:55 07/12/17 03:10 White Blood Count 9.5 TH/MM3 Red Blood Count 4.11 MIL/MM3 Hemoglobin 12.9 GM/DL Hematocrit 38.1 % Mean Corpuscular Volume 92.6 FL Mean Corpuscular Hemoglobin 31.4 PG Mean Corpuscular Hemoglobin Concent 33.9 % Red Cell Distribution Width 14.0 % Platelet Count 263 TH/MM3 Mean Platelet Volume 7.8 FL Neutrophils (%) (Auto) 52.9 % Lymphocytes (%) (Auto) 37.3 % Monocytes (%) (Auto) 7.2 % Eosinophils (%) (Auto) 1.9 % Basophils (%) (Auto) 0.7 % Neutrophils # (Auto) 5.0 TH/MM3 Lymphocytes # (Auto) 3.5 TH/MM3 Monocytes # (Auto) 0.7 TH/MM3 Eosinophils # (Auto) 0.2 TH/MM3 Basophils # (Auto) 0.1 TH/MM3 CBC Comment DIFF FINAL Differential Comment Blood Urea Nitrogen 10 MG/DL Creatinine 0.59 MG/DL Random Glucose 77 MG/DL Total Protein 6.9 GM/DL Albumin 3.5 GM/DL Calcium Level 8.3 MG/DL Phosphorus Level 4.6 MG/DL Magnesium Level 2.0 MG/DL Alkaline Phosphatase 67 U/L Aspartate Amino Transf (AST/SGOT) 18 U/L Alanine Aminotransferase (ALT/SGPT) 20 U/L Total Bilirubin 0.2 MG/DL Sodium Level 141 MEQ/L Potassium Level 3.5 MEQ/L Chloride Level 108 MEQ/L Carbon Dioxide Level 26.7 MEQ/L Anion Gap 6 MEQ/L Estimat Glomerular Filtration Rate 112 ML/MIN Lipase 200 U/L Ethyl Alcohol Level LESS THAN 3 MG/DL Urine Color LIGHT-RED Urine Turbidity HAZY Urine pH 5.0 Urine Specific [place] 1.009 Urine Protein 30 mg/dL Urine Glucose (UA) NEG mg/dL Urine Ketones NEG mg/dL Urine Occult Blood LARGE Urine Nitrite NEG Urine Bilirubin NEG Urine Urobilinogen LESS THAN 2.0 MG/DL Urine Leukocyte Esterase TRACE Urine RBC /hpf Urine WBC 27 /hpf Urine Squamous Epithelial Cells 1 /hpf Urine Amorphous Sediment RARE Urine Bacteria MOD /hpf Urine Mucus MOD /lpf Microscopic Urinalysis Comment CULTURE INDICATED Urine Opiates Screen NEG Urine Barbiturates Screen NEG Urine Amphetamines Screen NEG Urine Benzodiazepines Screen NEG Urine Cocaine Screen NEG Urine Cannabinoids Screen NEG Vital Signs Date Time Temp Pulse Resp B/P (MAP) Pulse Ox O2 Delivery O2 Flow Rate FiO2 07/11/17 22:24 98.5 76 16 124/87 (99) 98 Narrative Course Labs reviewed, no acute abdomen is identified. Urinalysis consistent with urinary tract infection and reflex culture is pending. Patient was given a gram of Rocephin IV in the emergency department. Patient's vital signs are stable, she is afebrile. Patient was assessed and was resting comfortably. Patient will be given a prescription to complete full course of antibiotics as outpatient. She is encouraged follow-up with her primary doctor or return to emergency department for any new or worsening symptoms. Patient is stable for discharge. Diagnosis Primary Impression: Urinary tract infection Qualified Codes: N39.0 - Urinary tract infection, site not specified Referrals: [facility] Primary Care Physician Patient Instructions: General Instructions, Urinary Tract Infection in Women ( ED) Additional Instruction: Increase fluid intake Complete full course of antibiotics as prescribed Emergency department for any new or worsening symptoms Follow-up with your primary doctor or at the [facility] Med/Other Pt SpecificInfo: Prescription(s) given Scripts Cephalexin (Keflex) 500 Mg Cap 500 MG PO Q12H for Infection for 10 Days, #20 CAP 0 Refills Prov: Angela Schroeder 07/12/17 Disposition: 01 DISCHARGE HOME Condition: Stable Angela Schroeder Jul 12, 2017 03:48
[2017-07-12 05:30] VITALS: BP 128/76; PULSE 79; RESP 18; O2SAT 100; O2SAT 98
== END 2017-07-12 05:32 | disposition home or self-care (01) ==
LOC: NEPD 22:22
DX: N39.0 Urinary tract infection, site not specified (principal); B95.61 Methicillin susceptible Staphylococcus aureus infection as the cause of diseases classified elsewhere; B95.1 Streptococcus, group B, as the cause of diseases classified elsewhere; E86.0 Dehydration; F17.200 Nicotine dependence, unspecified, uncomplicated
CPT/HCPCS: 71010; 80053; 80307; 81001; 83690; 83735; 84100; 85025; 86403; 87086; 87186; 96361; 96374; 99284; J0696; J7030

== ENCOUNTER 2017-08-02 00:35 | Emergency (ER) | payer SELFPAY ==
[~2017-08-02] VITALS: Ht 160 cm; Wt 60.0 kg
[~2017-08-02 00:35] MED LIST changes: +CEPH-460 PO
[2017-08-02 00:38] VITALS: BP 135/78; PULSE 78; RESP 18; TEMP 98.7; O2SAT 99
[2017-08-02] MEDS ORDERED: VENTAER INH (03:24)
[2017-08-02] MEDS ORDERED: MEDR4PAK PO (03:24)
--- NOTE | 2017-08-02 03:24 | PD ---
HPI Chief Complaint: Cold / Flu Symptoms Time Seen by Provider: 02:33 Travel History International Travel<30 days: No Contact w/Intl Traveler<30days: No Traveled to known affect area: No History of Present Illness HPI PATIENT STATES THAT EARLIER SHE HAD SOME COUGHING, NONPROD, HAS RUN OUT OF HER ALBUTEROL...THINKS THAT HAD SHE HAD HER INHALER THEN SHE WOULD HAVE AVOIDED THIS VISIT....NO ALLEVIATING/AGGRAVATING FACTORS.....DENIES FEVER/N/V/D/CP/REAVES/ ABDPAIN/ PFSH Past Medical History Medical History: Denies Significant Hx Diabetes: No Diminished Hearing: No Immunizations Current: Yes Seizures: No Tetanus Vaccination: Unknown Influenza Vaccination: No ?: Unknown LMP: 1 MONTH AGO Menopausal: No : 0 Miscarriage: 1 Past Surgical History Surgical History: No Previous Surgery Social History Alcohol Use: No Tobacco Use: Yes (1PPD) Substance Use: No (denies) Allergies-Medications (Allergen,Severity, Reaction): Coded Allergies: feathers (Unverified Allergy, Severe, 08/09/17) mold (Unverified Allergy, Mild, 08/09/17) Reported Meds & Prescriptions Reported Meds & Active Scripts Active Medrol Dosepak (Methylprednisolone) 4 Mg Dspk 4 Mg PO DIRECTED Per Pharmacist direction Ventolin Hfa 18 GM Inh (Albuterol Sulfate) 90 Mcg/Act Aer 1 Puff INH Q4H PRN Review of Systems Except as stated in HPI: all other systems reviewed are Neg General / Constitutional: No: Fever Eyes: No: Visual changes HENT: No: Headaches Cardiovascular: No: Chest Pain or Discomfort Respiratory: Positive: Cough Gastrointestinal: No: Abdominal Pain Genitourinary: No: Dysuria Musculoskeletal: No: Pain Skin: No Rash Neurologic: No: Weakness Psychiatric: No: Depression Endocrine: No: Polydipsia Hematologic/Lymphatic: No: Easy Bruising Physical Exam Narrative GENERAL: SKIN: Warm and dry. HEAD: Atraumatic. Normocephalic. EYES: Pupils equal and round. No scleral icterus. No injection or drainage. ENT: No nasal bleeding or discharge. Mucous membranes pink and moist. NECK: Trachea midline. No JVD. CARDIOVASCULAR: Regular rate and rhythm. RESPIRATORY: No accessory muscle use. Clear to auscultation. Breath sounds equal bilaterally. GASTROINTESTINAL: Abdomen soft, non-tender, nondistended. MUSCULOSKELETAL: Extremities without clubbing, cyanosis, or edema. No obvious deformities. NEUROLOGICAL: Awake and alert. No obvious cranial nerve deficits. Motor grossly within normal limits. Five out of 5 muscle strength in the arms and legs. Normal speech. PSYCHIATRIC: Appropriate mood and affect; insight and judgment normal. Data Data Last Documented VS Orders Orders Ed Discharge Order (08/02/17 03:54) MDM Medical Decision Making Medical Screen Exam Complete: Yes Emergency Medical Condition: No Medical Record Reviewed: Yes Differential Diagnosis bronchitis v bronchospasm Narrative Course AFTER EVALUATION PATIENT IS FOUND TO HAVE NL PULSE OX, ONLY SOME SCATTERED RONCHI, NO ACTIVE COUGING AND PATIENT WAS RESTING PEACEFULLY PRIOR TO MY EXAMINATION. Diagnosis Primary Impression: Bronchospasm with bronchitis, acute Referrals: [facility] FOR FURTHER OUTPATIENT MEDICAL CARE. Patient Instructions: Acute Bronchitis (ED), General Instructions Scripts Methylprednisolone Dosepak (Medrol Dosepak) 4 Mg Dspk 4 MG PO DIRECTED, #1 DSPK 0 Refills Per Pharmacist direction Prov: Andry Courtney MD 08/02/17 Albuterol 18 GM Inh (Ventolin Hfa 18 GM Inh) 90 Mcg/Act Aer 1 PUFF INH Q4H Y for SHORTNESS OF BREATH, #1 INHALER 0 Refills Prov: Andry Courtney MD 08/02/17 Disposition: 01 DISCHARGE HOME Condition: Stable Andry Courtney MD Aug 02, 2017 03:24
== END 2017-08-02 04:41 | disposition home or self-care (01) ==
LOC: NEPC 00:35
DX: J20.9 Acute bronchitis, unspecified (principal); F17.200 Nicotine dependence, unspecified, uncomplicated
CPT/HCPCS: 99284

== ENCOUNTER 2017-08-09 14:52 | Emergency (ER) | payer SELFPAY ==
[~2017-08-09] VITALS: Ht 160 cm; Wt 64.0 kg
[~2017-08-09 14:52] MED LIST changes: -CEPH-460 PO; +MEDR4PAK PO; -POTA20TA5 PO; +VENTAER INH
[2017-08-09 15:00] VITALS: BP 140/64; PULSE 81; RESP 16; TEMP 98.1; O2SAT 96
[2017-08-09 15:23] LABS: BLOOD, URINE MOD (NEG); GLUCOSE,URINE NEG (NEG); KETONE, URINE NEG (NEG); NITRITE,URINE NEG (NEG); PH, URINE 5.5 (5.0-8.5)
[2017-08-09 15:29] LABS: COMMENT (UR) CULT NOT INDICATED; CULTURE IF INDICATED CULT NOT INDICATED; METHOD OF COLLECTION CLEAN CATCH; RBC, URINE 0-3 /hpf (0-3); SQUAMOUS EPITHELIAL CELL URINE 0-5 /hpf (0-5); URINE COLOR STRAW (YELLW/STRAW)
== END 2017-08-09 17:31 | disposition left against medical advice (07) ==
LOC: PHED 14:52
DX: R39.9 Unspecified symptoms and signs involving the genitourinary system (principal)
CPT/HCPCS: 81001; 84703

== ENCOUNTER 2017-09-12 06:12 | Emergency (ER) | payer SELFPAY ==
[~2017-09-12] VITALS: Ht 160 cm; Wt 60.0 kg
[2017-09-12 06:19] VITALS: BP 125/69; PULSE 66; RESP 20; TEMP 97.3; O2SAT 97
--- NOTE | 2017-09-12 06:26 | PD ---
HPI Chief Complaint: Respiratory Symptoms Time Seen by Provider: 06:17 Travel History International Travel<30 days: No Contact w/Intl Traveler<30days: No Traveled to known affect area: No History of Present Illness HPI The patient is a 42 year old female who presents to the [facility] emergency department with a history of shortness of breath that she reports began prior to her arrival. The patient reports that she does have a history of smoking one pack of cigarettes per day. She reports that she was seen recently in another emergency department a few days ago and was given a prescription for antibiotic and a steroid, however she lost the prescription. The patient incidentally also reports having a few days of dysuria with urinary frequency and urgency. The patient arrives with normal vital signs. The patient has difficulty staying awake to answer questions. On review of systems , she denies having any known recent fevers, neck pain, chest pain, abdominal pain, vomiting, diarrhea, or neurologic symptoms. LMP: 2 weeks ago. PFSH Past Medical History Narrative Medical The patient's past medical history is reportedly none. From reviewing the electronic medical record, the patient has a prior history of bipolar disorder and schizophrenia. Asthma: Yes Diabetes: No Diminished Hearing: No Immunizations Current: Yes Seizures: No Tetanus Vaccination: Unknown ?: Not LMP: 3 weeks ago Menopausal: No : 0 Miscarriage: 1 Past Surgical History Surgical History: No Previous Surgery Social History Alcohol Use: No Tobacco Use: Yes (1PPD) Substance Use: No (denies) Allergies-Medications (Allergen,Severity, Reaction): Coded Allergies: feathers (Unverified Allergy, Severe, 09/12/17) mold (Unverified Allergy, Mild, 09/12/17) Reported Meds & Prescriptions Reported Meds & Active Scripts Active Medrol Dosepak (Methylprednisolone) 4 Mg Dspk 4 Mg PO DIRECTED Per Pharmacist direction Ventolin Hfa 18 GM Inh (Albuterol Sulfate) 90 Mcg/Act Aer 1 Puff INH Q4H PRN Review of Systems Except as stated in HPI: all other systems reviewed are Neg General / Constitutional: No: Fever Eyes: No: Visual changes HENT: No: Headaches, Congestion Cardiovascular: No: Chest Pain or Discomfort Respiratory: Positive: Cough, Shortness of Breath, Wheezing Gastrointestinal: No: Abdominal Pain Genitourinary: Positive: Urgency, Frequency, Dysuria Musculoskeletal: No: Pain Skin: No Rash Neurologic: No: Weakness, Focal Abnormalities, Change in Mentation, Slurred Speech, Sensory Disturbance Psychiatric: No: Depression Endocrine: No: Polydipsia Hematologic/Lymphatic: No: Easy Bruising Physical Exam Narrative General: The patient is a well-developed well-nourished female in no acute distress. Head and Neck exam: Head is normocephalic atraumatic. Eyes: EOMI, pupils are equal round and reactive to light. Nose: Midline septum with pink mucous membranes Mouth: Dentition unremarkable. Moist mucus membranes. Posterior oropharynx is not erythematous. No tonsillar hypertrophy. Uvula midline. Airway patent. Neck: No palpable lymphadenopathy. No nuchal rigidity. No thyromegaly. Cardiovascular: Regular rate and rhythm without murmurs, gallops, or rubs. Lungs: Clear to auscultation bilaterally. No wheezes, rhonchi, or rales. Abdomen: Soft, without tenderness to palpation in all 4 quadrants of the abdomen. No guarding, rebound, or rigidity. Normal bowel sounds are audible. No tenderness on palpation of McBurney's point. Extremities: No clubbing, cyanosis, or edema. 2+ pulses in all 4 extremities. No calf tenderness on palpation. Back: No costovertebral angle tenderness to palpation. Neurologic Exam: Grossly nonfocal. Drowsy on examination. Skin Exam: No rash noted. Intact skin that is warm and dry. Data Data Last Documented VS Vital Signs Date Time Temp Pulse Resp B/P (MAP) Pulse Ox O2 Delivery O2 Flow Rate FiO2 09/12/17 06:22 20 98 Room Air 09/12/17 06:19 97.3 66 125/69 (87) Orders Orders Urinalysis - C+S If Indicated (09/12/17 06:42) Chest, Single Ap (09/12/17 06:42) Ed Urine Pregnancytest Poc (09/12/17 06:42) MDM Medical Decision Making Medical Screen Exam Complete: Yes Emergency Medical Condition: Yes Medical Record Reviewed: Yes Interpretation(s) Last Impressions Chest X-Ray 09/12/1742 Signed Impressions: Service Date/Time: Tuesday, September 12, 2017 06:51 - CONCLUSION: No acute disease. Jaxon Canales MD Differential Diagnosis Urinary tract infection, versus interstitial cystitis, versus pneumonia, COPD exacerbation, versus versus malingering Narrative Course During the course of the patients emergency department visit, the patients history, examination, and differential diagnosis were reviewed with the patient. The patient was placed on a panel monitor with oximetry and frequent blood pressure monitoring. A urinalysis and chest x-ray was ordered. Radiology studies were reviewed and remarkable for a chest x-ray that shows no acute cardiopulmonary disease. Urinalysis is pending at the conclusion of my shift. The patient's case was checked out to the oncoming emergency physician to disposition the patient based on the conclusion of her workup. I Anticipate that the patient will be able to be discharged home. Diagnosis Primary Impression: Tobacco abuse Additional Impression: Dysuria Referrals: [facility] 3 days Patient Instructions: General Instructions, How to Quit Using Smokeless Tobacco (ED) Disposition: 01 DISCHARGE HOME Condition: Stable Mikala Melendez MD Sep 12, 2017 06:26
--- NOTE | 2017-09-12 07:02 | RADRPT ---
EXAM DATE/TIME: 09/12/2017 06:51 [facility] COMPARISON: CHEST SINGLE AP, July 12, 2017, 2:07. INDICATIONS : Cough. MEDICAL HISTORY : None. SURGICAL HISTORY : None. ENCOUNTER: Initial ACUITY: 1 day PAIN SCORE: 0/10 LOCATION: Bilateral chest FINDINGS: A single view of the chest demonstrates the lungs to be symmetrically aerated without evidence of mas s, infiltrate or effusion. The cardiomediastinal contours are unremarkable. Osseous structures are intact. CONCLUSION: No acute disease. Jaxon Canales MD on September 12, 2017 at 7:00 Board Certified Radiologist. This report was verified electronically.
[2017-09-12 09:36] LABS: BACTERIA, URINE RARE /hpf; BILIRUBIN, URINE NEG (NEG); BLOOD, URINE NEG (NEG); GLUCOSE,URINE NEG (NEG); KETONE, URINE NEG (NEG); MUCUS URINE MOD /lpf (OCC); NITRITE,URINE NEG (NEG); PH, URINE 5.5 (5.0-8.5); SQUAMOUS EPITHELIAL CELL URINE <1 /hpf (0-5); URINE COLOR YELLOW (YELLW/STRAW); URINE LEUKOCYTE ESTERASE NEG (NEG)
--- NOTE | 2017-09-12 10:31 | PD ---
Physical Exam Narrative Received sign out from previous team to follow up urinalysis. Please see previous provider's note for further details. 42yo F here with sob and dysuria. CXR negative. Urine negative. UA showed negative leukocyte. WBC 1. Culture not indicated. Pt is saturating at 98% on RA. Pt is resting comfortably with clear lung sounds and speaking in complete sentences. Pt denies any sob now. Return precautions given. Data Data Last Documented VS Vital Signs Date Time Temp Pulse Resp B/P (MAP) Pulse Ox O2 Delivery O2 Flow Rate FiO2 09/12/17 10:32 97.8 09/12/17 06:22 20 98 Room Air 09/12/17 06:19 66 125/69 (87) Orders Orders Urinalysis - C+S If Indicated (09/12/17 06:42) Chest, Single Ap (09/12/17 06:42) Ed Urine Pregnancytest Poc (09/12/17 06:42) Labs Laboratory Tests Test 09/12/17 09:00 Urine Color YELLOW Urine Turbidity CLEAR Urine pH 5.5 Urine Specific [place] 1.014 Urine Protein 30 mg/dL Urine Glucose (UA) NEG mg/dL Urine Ketones NEG mg/dL Urine Occult Blood NEG Urine Nitrite NEG Urine Bilirubin NEG Urine Urobilinogen LESS THAN 2.0 MG/DL Urine Leukocyte Esterase NEG Urine RBC 3 /hpf Urine WBC 1 /hpf Urine Squamous Epithelial Cells <1 /hpf Urine Bacteria RARE /hpf Urine Mucus MOD /lpf Microscopic Urinalysis Comment CULT NOT INDICATED MDM Supervised Visit with KULDIP: No Diagnosis Primary Impression: Tobacco abuse Additional Impression: Dysuria Referrals: [facility] 3 days Patient Instructions: General Instructions, How to Quit Using Smokeless Tobacco (ED) Departure Forms: Tests/Procedures Additional Instruction: Please follow up with your primary care physician. Med/Other Pt SpecificInfo: No Change to Meds Disposition: 01 DISCHARGE HOME Condition: Stable Rosaura Blackwell DO Sep 12, 2017 10:31
[2017-09-12 10:32] VITALS: TEMP 97.8
== END 2017-09-12 11:42 | disposition home or self-care (01) ==
LOC: NEPC 06:12
DX: R30.0 Dysuria (principal); F17.210 Nicotine dependence, cigarettes, uncomplicated; J45.909 Unspecified asthma, uncomplicated
CPT/HCPCS: 71010; 81001; 84703; 99284

== ENCOUNTER 2017-09-25 22:24 | Emergency (ER) | payer SELFPAY ==
[2017-09-25 22:25] VITALS: BP 168/74; PULSE 86; RESP 16; TEMP 98; O2SAT 97
[2017-09-25] MEDS ORDERED: DIFL100T PO (22:35)
--- NOTE | 2017-09-25 22:46 | PD ---
HPI Chief Complaint: Medication Refill Request Time Seen by Provider: 22:38 Travel History International Travel<30 days: No Contact w/Intl Traveler<30days: No Traveled to known affect area: No History of Present Illness HPI 42-year-old white female presents to emergency department requesting refill of her Diflucan for vaginal yeast infection. She states that she is leaving out of town and needs a refill. Patient states that she has had intermittent white vaginal discharge which she reports is her yeast infection. She denies any other discharge or abnormal bleeding. Denies . She denies any abdominal pain and no pelvic pain. No fever chills. No back pain. History Past Medical Histgory Narrative Medical Bipolar, substance abuse Tetanus Vaccination: Unknown Menopausal: No Social History Alcohol Use: No Tobacco Use: Yes (1PPD) Allergies-Medications (Allergen,Severity, Reaction): Coded Allergies: feathers (Unverified Allergy, Severe, 09/25/17) mold (Unverified Allergy, Mild, 09/25/17) Reported Meds & Prescriptions Reported Meds & Active Scripts Active Reported Diflucan (Fluconazole) 100 Mg Tab 100 Mg PO BID Review of Systems General / Constitutional: No: Fever Eyes: No: Visual changes HENT: No: Headaches Cardiovascular: No: Chest Pain or Discomfort Respiratory: No: Shortness of Breath Gastrointestinal: No: Nausea, Vomiting, Diarrhea, Abdominal Pain Genitourinary: Positive: Discharge, No: Urgency, Frequency, Dysuria, Hematuria , Pelvic Pain, Flank Pain, Vaginal Bleeding Musculoskeletal: No: Pain Skin: No Rash Neurologic: No: Weakness Psychiatric: No: Depression Endocrine: No: Polydipsia Hematologic/Lymphatic: No: Easy Bruising Physical Exam Narrative GENERAL: Well-developed, well-nourished in no acute distress. Nontoxic appearing. HEAD: Normocephalic, patient has multiple picking of the face and extremities from formication EYES: Pupils equal round and reactive. Extraocular motions intact. No scleral icterus. No injection or drainage. ENT: TMs clear without erythema. The external auditory canals clear. Nose: clear . Posterior pharynx is pink and moist. No tonsillar edema or exudate. Uvula midline. Airway patent. NECK: Trachea midline.Supple, nontender, moves head freely. No central bony tenderness or spasm. CARDIOVASCULAR: Regular rate and rhythm without murmurs, gallops, or rubs. RESPIRATORY: Clear to auscultation. Breath sounds equal bilaterally. No wheezes , rales, or rhonchi. GASTROINTESTINAL: Abdomen soft, non-tender, nondistended. No hepato-splenomegaly , or palpable masses. No guarding. EXTREMITIES: No clubbing, cyanosis, or edema. No joint tenderness, effusion, or edema noted. BACK: Nontender without deformity or crepitance. No flank tenderness. Data Data Last Documented VS Vital Signs Date Time Temp Pulse Resp B/P (MAP) Pulse Ox O2 Delivery O2 Flow Rate FiO2 09/25/17 22:25 98.0 86 16 168/74 (105) 97 Room Air MDM Medical Screen Exam Complete: Yes Emergency Medical Condition: Yes Differential Diagnosis Differential diagnoses: Vaginitis, STD, UTI Narrative Course A medical screening exam was performed: At the time of evaluation the presenting medical condition was determined not to be of an emergent nature. The patient was given the option of receiving additional care, but declined. Patient was given options for additional community resources from which to obtain care. The Patient Has Been advised to seek medical attention for their presenting complaint. The patient has been advised to return to the ER at any time if an emergent condition develops. Primary Impression: Encounter for medical screening examination Condition: Luis Alfredo Mack Sep 25, 2017 22:46
[2017-09-26] MEDS ORDERED: CYCL10TA PO (07:17)
== END 2017-09-25 23:00 | disposition left against medical advice (07) ==
LOC: NEPD 22:24
DX: Z76.0 Encounter for issue of repeat prescription (principal)
CPT/HCPCS: 99281

== ENCOUNTER 2017-09-26 06:10 | Emergency (ER) | payer SELFPAY ==
[~2017-09-26] VITALS: Ht 160 cm; Wt 60.0 kg
[~2017-09-26 06:10] MED LIST changes: +DIFL100T PO; -MEDR4PAK PO; -VENTAER INH
[2017-09-26 06:11] VITALS: BP 128/75; PULSE 99; RESP 16; TEMP 97.7; O2SAT 100
[2017-09-26] MEDS ORDERED: CYCL10TA PO (07:17)
--- NOTE | 2017-09-26 07:17 | PD ---
HPI Chief Complaint: Medical Clearance Time Seen by Provider: 07:03 Travel History International Travel<30 days: No Contact w/Intl Traveler<30days: No Traveled to known affect area: No History of Present Illness HPI patient comes in c/o head pain, states that she got over a cold recently and over last day or so, no visual changes, no fever, no n/v/, no rash. denies alleviating/aggravating factors. PFSH Past Medical History Asthma: Yes Diabetes: No Diminished Hearing: No Immunizations Current: Yes Seizures: No ?: Not LMP: 08/26/17 Menopausal: No : 0 Miscarriage: 1 Past Surgical History Surgical History: No Previous Surgery Social History Alcohol Use: No Tobacco Use: Yes (1PPD) Substance Use: No (denies) Allergies-Medications (Allergen,Severity, Reaction): Coded Allergies: feathers (Unverified Allergy, Severe, 09/26/17) mold (Unverified Allergy, Mild, 09/26/17) Reported Meds & Prescriptions Reported Meds & Active Scripts Active Reported Diflucan (Fluconazole) 100 Mg Tab 100 Mg PO BID Review of Systems Except as stated in HPI: all other systems reviewed are Neg General / Constitutional: No: Fever Eyes: No: Visual changes HENT: Positive: Headaches Cardiovascular: No: Chest Pain or Discomfort Respiratory: No: Shortness of Breath Gastrointestinal: No: Abdominal Pain Genitourinary: No: Dysuria Musculoskeletal: No: Pain Skin: No Rash Neurologic: No: Weakness Psychiatric: No: Depression Endocrine: No: Polydipsia Hematologic/Lymphatic: No: Easy Bruising Physical Exam Narrative GENERAL: SKIN: Warm and dry. HEAD: Atraumatic. Normocephalic. EYES: Pupils equal and round. No scleral icterus. No injection or drainage. ENT: No nasal bleeding or discharge. Mucous membranes pink and moist. NECK: Trachea midline. No JVD. CARDIOVASCULAR: Regular rate and rhythm. RESPIRATORY: No accessory muscle use. Clear to auscultation. Breath sounds equal bilaterally. GASTROINTESTINAL: Abdomen soft, non-tender, nondistended. MUSCULOSKELETAL: Extremities without clubbing, cyanosis, or edema. No obvious deformities. NEUROLOGICAL: Awake and alert. No obvious cranial nerve deficits. Motor grossly within normal limits. Five out of 5 muscle strength in the arms and legs. Normal speech. PSYCHIATRIC: Appropriate mood and affect; insight and judgment normal. Data Data Last Documented VS Vital Signs Date Time Temp Pulse Resp B/P (MAP) Pulse Ox O2 Delivery O2 Flow Rate FiO2 09/26/17 06:11 97.7 99 16 128/75 (92) 100 Room Air MDM Medical Decision Making Medical Screen Exam Complete: Yes Emergency Medical Condition: Yes Medical Record Reviewed: Yes Diagnosis Primary Impression: tension levi Patient Instructions: General Instructions, Tension Headache (ED) Scripts Cyclobenzaprine (Flexeril) 10 Mg Tab 10 MG PO TID for Muscle Spasm, #9 TAB 0 Refills Prov: Andry Courtney MD 09/26/17 Disposition: DISCHARGE HOME Condition: Stable Andry Courtney MD Sep 26, 2017 07:17
== END 2017-09-26 08:14 | disposition home or self-care (01) ==
LOC: NEPE 06:10
DX: G44.209 Tension-type headache, unspecified, not intractable (principal); F17.200 Nicotine dependence, unspecified, uncomplicated
CPT/HCPCS: 99283